=== PATIENT | female | born 1970 | race Caucasian/White ===

== ENCOUNTER 2017-02-06 21:34 | Inpatient (IN) ==
[2017-02-07] MEDS ORDERED: Naloxone 0.4 MG/ML INJ IVP PRN (01:43)
[2017-02-07] MEDS ORDERED: Furosemide 20 MG/2 ML VIAL IVP ONE (01:46)
--- NOTE | 2017-02-07 01:48 | Internal Med History&Physical ---
Date of Encounter: 02/07/17 Time of Encounter: 01:00 Assessment and Plan (1) Acute respiratory failure Current visit: Yes Status: Acute Likely secondary to acute exacerbation of CHF/pulmonary edema. She is treated with Lasix and supplemental oxygen. She is improving. Qualifiers: Respiratory failure complication: hypoxia Qualified Code(s): J96.01 - Acute respiratory failure with hypoxia (2) Acute exacerbation of CHF (congestive heart failure) Current visit: Yes Status: Acute Patient's prior medical records indicate CHF (systolic) - patient reports that she is not aware. Her clinical presentation is suspicious for acute exacerbation of CHF. BNP was 875. Treat with intravenous Lasix. Echocardiogram. Consider cardiology consultation. Based on my evaluation is unlikely that the patient has pneumonia. We will repeat the chest x-ray, after the patient received Lasix. Check CRP. There is no significant radiographic improvement, or if the patient is worsening consider starting antibiotics. At this time I am not giving her any antibiotics Qualifiers: Congestive heart failure type: unspecified congestive heart failure type Qualified Code(s): I50.9 - Heart failure, unspecified (3) Hypokalemia Current visit: Yes Status: Acute Replenish potassium. Check magnesium level (4) HTN (hypertension) Current visit: Yes Status: Chronic Continue home antihypertensives Qualifiers: Hypertension type: essential hypertension Qualified Code(s): I10 - Essential (primary) hypertension (5) Morbid obesity with BMI of 45.0-49.9, adult Current visit: Yes Status: Chronic Supportive care (6) Leucocytosis Current visit: Yes Status: Acute Possibly secondary to recent steroid use Qualifiers: Leukocytosis type: unspecified Qualified Code(s): D72.829 - Elevated white blood cell count, unspecified (7) Swelling of right lower extremity Current visit: Yes Status: Chronic Possibly sequela of prior DVT. Will check D-dimer - if positive, consider venous doppler / CTA chest (8) DVT prophylaxis Current visit: Yes Status: Acute [facility] Internal Medicine - H&P: HPI Chief complaint: shortness of breath Admitted From: Emergency Dept Plans for Post Hospital Care: Home History of present illness: Ms. Astudillo is a 46 year old female with past medical history significant for hypertension, GERD, hyperlipidemia. Prior records indicate that she has congestive heart failure (systolic) - she is not aware of the diagnosis. 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 She also reports history of DVT in the right lower extremity, following right knee replacement and was treated with anticoagulant for 6 months (her RLE is more swollen than the left at baseline). She apparently went to emergency department at [facility], on 02/03/17, with shortness of breath and dry cough. She was thought to have bronchitis and was treated with prednisone. She did not improve and her shortness of breath was getting worse and hence she presented to the emergency department. She now reports shortness of breath at rest and on lying down. She has cough with some expectoration and upper abdominal pain associated with cough. She denies chest pain, fever, chills, dysuria, hematuria, bowel problems, nausea, vomiting. She was evaluated in the emergency department at [facility]. She reportedly had oxygen saturations about 89-90% improvement, which improved with topical oxygen through nasal cannula. Chest x-ray reported - compared to a prior study, there is increased interstitial and patchy opacities. Findings are nonspecific, could represent either pulmonary edema or atypical infection. She was given levofloxacin, oral and IV potassium for hypokalemia. She is admitted to the hospitalist service for further management. Labs showed WBC 12.3, hemoglobin 11.6, hematocrit 35.7, platelets 291, sodium 146, potassium 2.7, BNP 5, creatinine 0.84, glucose 155, calcium 9.1, albumin 2.7. BNP: 875 Past Med Surg Social Fam HX - Past Medical History Medical history: arthritis, CHF, GERD, hyperlipidemia, hypertension, other Psychiatric history: no psych history - Past Surgical History Surgical History: other - Social History Smoking Status: Never smoker Smokeless Tobacco Status: No Alcohol use: none Drug use: none - Family History Mother Age: 66 Family Member Ethnicity: Non- Living Status: Age at : 66 Cause of : [place] Hx Family Cardiac Disorders: Yes ([place]) Hx Family Respiratory Disorders: No Hx Family Cancer: No Hx Family GI Disorders: No Hx Family Genitourinary Disorders: No Hx Family Endocrine Disorder: Yes (DM) Hx Family Musculoskeletal Disorders: No Hx Family Neuromuscular Disorders: No Hx Family Neurologic Disorders: No Hx Family HEENT Disorders: No Hx Family Autoimmune Disorders: No Hx Family Reproductive Disorders: No Hx Family Psychosocial Disorders: No Hx Family Medical Disorders: No Father Living Status: Hx Family Cardiac Disorders: No Hx Family Respiratory Disorders: No Hx Family Cancer: Yes (melenoma) Hx Family GI Disorders: Yes (GERD) Hx Family Genitourinary Disorders: No Hx Family Endocrine Disorder: No Hx Family Musculoskeletal Disorders: No Hx Family Neuromuscular Disorders: No Hx Family Neurologic Disorders: No Hx Family HEENT Disorders: No Hx Family Autoimmune Disorders: No Hx Family Reproductive Disorders: No Hx Family Psychosocial Disorders: No Hx Family Medical Disorders: No Internal Medicine - H&P: Meds Albuterol Sulfate [Albuterol Inhaler] 2 puff IH Q4HR PRN 10/29/15 [History] Carvedilol [Coreg] 6.25 mg PO HS 10/29/15 [History] Omeprazole [PriLOSEC] 40 mg PO HS 10/29/15 [History] Simvastatin [Zocor] 20 mg PO HS 10/29/15 [History] Aspirin 81 mg PO DAILY 07/13/16 [History] Lisinopril [Zestril] 5 mg PO HS 11/07/16 [History] PredniSONE 40 mg PO DAILY #10 tablet 02/03/17 [Rx] Promethazine/Dextromethorphan [Promethazine-Dm Syrup] 5 ml PO Q6HR PRN #120 ml 02/03/17 [Rx] Ibuprofen [Motrin] 800 mg PO Q8HR 02/07/17 [History] Loratadine [Allergy Relief] 10 mg PO PRN PRN 02/07/17 [History] Allergies No Known Allergies Allergy (Verified 12/25/16 19:14) All Systems PM: A 10-system review of systems was performed and is negative for pertinent findings except as documented above in the HPI. - Constitutional Vitals: Temp Pulse Resp BP Pulse Ox 98.3 F 83 18 140/91 95 02/06/17 23:56 02/06/17 23:56 02/06/17 23:56 02/06/17 23:56 02/06/17 23:56 Exam: General: Not in acute distress at the time of my evaluation HEENT: Oral mucosa is moist. No conjunctival palor or scleral icterus Neck: No obvious neck swellings Lungs: Bilateral posterior basal crackles heard Cardiac: Regular rate and rhythm. No significant murmurs Abdomen: Soft, non tender. Bowel sounds present Genitourinary: No hammond catheter Neurological: Alert and oriented. No gross localizing deficits Psych: Not aggressive or agitated Extremities: Bilateral leg edema; right more than left Skin: No generalized rash Internal Med - H&P Results - Labs Labs: Labs showed WBC 12.3, hemoglobin 11.6, hematocrit 35.7, platelets 291, sodium 146, potassium 2.7, BNP 5, creatinine 0.84, glucose 155, calcium 9.1, albumin 2.7. - EKG Data -: EKG Interpreted by Myself EKG shows normal: sinus rhythm - EKG Data EKG comments: LBBB, heart rate 108, QTC 459 ms 02/07/17 02:46 - Impressions Chest x-ray reported - compared to a prior study, there is increased interstitial and patchy opacities. Findings are nonspecific, could represent either pulmonary edema or atypical infection.
[2017-02-07] MEDS ORDERED: *HR* Enoxaparin 40 MG/0.4 ML SYRINGE SQ SCH (06:00)
[2017-02-07 06:07] LABS: Basophils # 0.1 K/mcL (0.0-0.2); Basophils % 0.4 %; Eosinophils % 0.1 %; Hematocrit 37.7 % (35.3-44.9); Hemoglobin 12.2 g/dL (11.5-15.4); Immature Granulocytes % 0.4 % (0-4); Lymphocytes # 3.6 K/mcL (0.6-4.6); Lymphocytes % 25.6 %; Mean Corpuscular HGB Conc 32.4 g/dL (31.6-35.5); Mean Corpuscular Hemoglobin 29.4 pg (28.0-33.3); Mean Corpuscular Volume 90.8 fL (83.0-100.0); Mean Platelet Volume 10.4 fL (9.4-12.4); Monocytes # 1.1 K/mcL (0.0-1.3); Neutrophils # 9.1 K/mcL (1.6-8.9); Nucleated Red Blood Cells 0.1 /100 WBC (0); Platelet Count 358 K/mcL (140-400); Red Blood Count 4.15 M/mcL (3.82-4.97); Red Cell Distribution Width 14.1 % (11.5-14.5); Segmented Neutrophils % 65.5 %
[2017-02-07 06:29] LABS: BUN/Creatinine Ratio 13 (6-26); Blood Urea Nitrogen 12 mg/dL (7-20); Calcium 9.4 mg/dL (8.6-10.8); Carbon Dioxide 34 mEq/L (19-29); Chloride 96 mEq/L (98-109); Chol/HDL Ratio 3.7 (0-4.9); Cholesterol 180 mg/dL (< 200); Glucose 113 mg/dL (70-99); HDL Cholesterol 49 mg/dL (40-59); LDL Cholesterol,Calculated 67 mg/dL (0-99); Magnesium 1.9 mg/dL (1.6-2.6); Osmolality,Calculated 299 (280-300); Potassium 2.6 mEq/L (3.5-4.5); Sodium 144 mEq/L (136-145); Triglycerides 319 mg/dL (< 150); eGFR For African Americans > 60 (> 60); eGFR For Non-African Americans > 60 (> 60)
[2017-02-07 06:49] LABS: C-Reactive Protein 18 mg/L (Less than 5)
[2017-02-07] MEDS ORDERED: Furosemide 40 MG/4 ML VIAL IVP SCH (09:00)
[2017-02-07] MEDS: Aspirin 81 MG TAB.CHEW PO SCH (09:22)
[2017-02-07] MEDS ORDERED: Perflutren Lipid Microsphere 1.3 ML in 0.9 % Sodium Chloride 8.7 ML IVP ONE (10:40)
[2017-02-07] MEDS ORDERED: Perflutren Lipid Microsphere 2 ML VIAL ONE (10:42)
--- NOTE | 2017-02-07 14:08 | Event Note ---
Date of Encounter: 02/07/17 Time of Encounter: 14:05 46/female Past medical history: Hypertension, GERD, hyperlipidemia, morbid obesity History of present illness: Admitted for worsening shortness of breath/dry cough. She was evaluated in a [place] ER and was transferred here for further evaluation. Noted that she underwent extensive investigation. Some of the lab work/imaging studies are still ongoing. Plan We will continue present management at this time. Once we get all the information then will talk with patient and rearrange the medication
--- NOTE | 2017-02-07 15:05 | ECHO - Doppler Report ---
Echo with Imaging Enhancement Agent Name: Dian Astudillo Date of Study: 02/07/2017 Date: 1970 Ht: 64.0 in Medical Record#: [id number] Age: 46 Wt: 273.0 lb Gender: Female BSA: 2.23 Order #: [id number] Location: [facility] Room #: 3B Reading Physician: Dayami Mae DO Machinist: Mame Haas RDCS Ordering Physician: Sonya Rodgers MD Primary Physician: Galina Bansal CNP Indications: New onset congestive heart failure Impressions: Technically challenging study with suboptimal windows. LV systolic function is moderately reduced, 35%. Even with use of Definity, not all myocardial segments were well visualized. RV is normal in size and function in images provided. Mild mitral regurgitation. Mild tricuspid regurgitation. At least mild pulmonary hypertension by TR gradient. IVC is not well visualized to estimate RVSP. Left Ventricular Wall Motion: Rest Echo Findings The apex, apical inferior, apical anterior, mid anterior, apical septal, mid inferior septal, basal inferior septal, apical lateral, mid anterior septal and basal anterior septal blood were hypokinetic. The mid inferior, basal inferior, basal anterior, mid inferior lateral and basal inferior lateral blood were not visualized. All other wall segments showed normal motion. Findings: Study Quality * Technically sub-optimal due to body habitus. ECG Findings * Normal sinus rhythm with BBB. Left Ventricle * Definity echo contrast was used. * Indeterminate diastolic function. * LVEF 35%. * Moderately dilated left ventricle. Aorta * Normally sized aortic root. Left Atrium * Mildly dilated left atrium. Mitral Valve * Normal mitral valve structure. * No mitral stenosis. * Mild mitral regurgitation. Aortic Valve * No aortic regurgitation. * Aortic valve not well visualized. * No aortic stenosis. Tricuspid Valve * Tricuspid valve not well visualized. * Mild tricuspid regurgitation. Pulmonic Valve * Pulmonic valve is not well visualized. * No pulmonic stenosis. * Trace pulmonic regurgitation. Pulmonary Artery * Pulmonary artery not well visualized. Right Atrium * Normal right atrial size. Right Ventricle * Normal right ventricular structure and function. Borderline normal Lat S Jagdeep. Not well visualized in the PSAX or subcostal views. Interatrial Septum * Interatrial septum not well evaluated. Pericardium * There is no pericardial effusion present. IVC * The IVC is not well evaluated. History Hypertension Hypercholesteremia Family History of CAD 12-20-12 a Previous Echo was performed. Contrast: Definity 1.3 ml in 8.7 ml of saline 2 ml. Measurements: BP: 130/ 84 2D Normal Values RVIDd: 2.70 cm <2.7 cm IVSd: .70 cm 0.6 - 1.0 cm LVIDd: 5.90 cm 3.7 - 5.6 cm LVPWd: .90 cm 0.6 - 1.1 cm LVIDs: 4.70 cm 1.5 - 3.6 cm AO: 2.70 cm < 4.0 cm LA: 4.20 cm 2.0 - 4.0cm %FS: 26.60 cm >25 % LVOT Diam: 2.00 cm LA volume: Mitral Valve Peak E:1.01 m/sec Peak A:.28 m/sec E/A Ratio:3.7 Peak E' Lat Jagdeep:13.3 cm/s Peak E' Med Jagdeep:2.92 cm/s E/E' Lat Ratio:7.6 E/E' Med Ratio:34.6 Tricuspid Valve TV Regurg Peak Grad: 39.00mmHg TV Regurg Peak Jagdeep: 3.11m/sec Updated by Dayami Mae on 02/07/2017 2:54:33 PM electronically signed on 02/07/2017 3:01:23 PM with status of Final Wall Motion Rizvi: 1=Normal, 2=Hypokinesis, 3=Akinesis, 4=Dyskinesis, 5=Aneurysmal, 6=Hyperkinetic, X=Not Visualized (Blank)=Missing
[2017-02-07] MEDS ORDERED: *HR* Enoxaparin 100 MG/ML SYRINGE SQ SCH (18:00)
[2017-02-07] MEDS ORDERED: Potassium Chloride 40 MEQ, Lidocaine 1% 2 ML in D5% in Water 500 ML IVPB ONE (18:29)
[2017-02-08 04:57] LABS: Basophils # 0.1 K/mcL (0.0-0.2); Basophils % 1.2 %; Eosinophils # 0.3 K/mcL (0.0-0.6); Eosinophils % 3.1 %; Hemoglobin 12.5 g/dL (11.5-15.4); Immature Granulocytes % 0.2 % (0-4); Lymphocytes # 2.7 K/mcL (0.6-4.6); Lymphocytes % 27.2 %; Mean Corpuscular HGB Conc 32.1 g/dL (31.6-35.5); Mean Corpuscular Hemoglobin 29.6 pg (28.0-33.3); Mean Corpuscular Volume 92.2 fL (83.0-100.0); Mean Platelet Volume 9.9 fL (9.4-12.4); Monocytes # 0.8 K/mcL (0.0-1.3); Neutrophils # 5.9 K/mcL (1.6-8.9); Platelet Count 296 K/mcL (140-400); Red Blood Count 4.23 M/mcL (3.82-4.97); Segmented Neutrophils % 60.3 %
[2017-02-08 05:15] LABS: Alanine Aminotransferase 35 Units/L (0-55); Albumin 3.4 g/dL (3.5-5.0); Albumin/Globulin Ratio 0.9 (1.1-2.2); Alkaline Phosphatase 71 Units/L (38-126); Aspartate Amino Transferase 21 Units/L (5-34); BUN/Creatinine Ratio 17 (6-26); Bilirubin,Total 0.7 mg/dL (0.2-1.2); Blood Urea Nitrogen 13 mg/dL (7-20); Calcium 8.6 mg/dL (8.6-10.8); Carbon Dioxide 34 mEq/L (19-29); Chloride 96 mEq/L (98-109); Globulin 3.7 g/dL (2.4-3.5); Glucose 103 mg/dL (70-99); Osmolality,Calculated 296 (280-300); Sodium 143 mEq/L (136-145); Total Protein 7.1 g/dL (6.0-8.3); eGFR For African Americans > 60 (> 60); eGFR For Non-African Americans > 60 (> 60)
[2017-02-08 05:26] LABS: Potassium 2.4 mEq/L (3.5-4.5)
[2017-02-08] MEDS: *HR* Enoxaparin 40 MG/0.4 ML SYRINGE SQ SCH (05:48)
[2017-02-08] MEDS ORDERED: Potassium Chloride 40 MEQ, Lidocaine 1% 2 ML in D5% in Water 500 ML IVPB ONE (07:50)
[2017-02-08] MEDS: Aspirin 81 MG TAB.CHEW PO SCH (08:32)
--- NOTE | 2017-02-08 09:59 | Cardiology Consult Note ---
<Alvaro Sarkar - Last Filed: 02/08/17 10:49> Date of Encounter: 02/08/17 Time of Encounter: 08:30 Assessment and Plan (1) Acute exacerbation of CHF (congestive heart failure) Current Visit: Yes Status: Acute Per Cardiology: Per review of medical records, known mild NICMP. BNP 875, CXR stable. According to last cardiology note, on PO laxix 20mg PRN, however patient denies taking. Received IV Lasix during hospital stay. Net I&O + 823ml. patient's weight up 3 pounds since June 2016 Relatively euvolemic on exam, but does have some nonpitting edema with BNP elevation. We'll start Lasix 20 mg by mouth daily. Qualifiers: Congestive heart failure type: systolic Qualified Code(s): I50.23 - Acute on chronic systolic (congestive) heart failure (2) NICM (nonischemic cardiomyopathy) Current Visit: Yes Status: Chronic Per Cardiology: Per review of records patient noted to have EF of 50% on echo December 2012. Gated EF 48% on stress test May 2013. EF 40% on heart catheterization January 2014. Catheterization January 2014 showed normal coronary angiogram. Current EF on echo 35%. Patient with troponins of 0.03, 0.04, and 0.05. Chest pain-free. Suspect demand ischemia, however non-STEMI cannot be excluded. We'll consider cardiac rehabilitation consult after catheterization. Patient reviewed and discussed with Dr. Mae, since EF appears to be further down and with mild troponin recommendations are for repeat ischemic evaluation in terms of left heart catheterization. Patient agreeable. Left heart catheterization today. Further recommendations after catheterization. On LAURA inhibitor. On beta ember at home , will add back beta ember. (3) Hypokalemia Current Visit: Yes Status: Acute Per Cardiology: K+ noted to be 2.7 on arrival. Did receive IV Lasix. Potassium been replenished by primary service. Telemetry reviewed with occasional PVCs, continue to monitor telemetry. Magnesium stable at 1.9. Continue to monitor closely. Discussion w patient/family: The assessment and plan as outlined above was discussed with the patient and/or family members who expressed understanding and agreement. All questions were answered. Thank you for involving us in the care of your patient. Please call with any questions. History of Present Illness Consult date: 02/08/17 Requesting physician: Korey Zamora Consult reason: Elevated Trop, Decreased EF Chief complaint: BAER History of present illness: Ms. Astudillo is a 46 year old female with a relevant past medical history of nonischemic craniopathy, hypertension, obstructive sleep apnea, obesity, left bundle branch block. Patient follows with Dr. Larse with cardiology. Cardiology consult for evaluation of decreased EF and mild troponin elevation. Patient reports over the past week she's had increased dry, nonproductive cough with sinus drainage and increased short of breath with exertion. Patient reports she is being treated for bronchitis with prednisone. She indicates yesterday she developed worsening dyspnea on exertion that seemed to not improved with rest. She denies any chest pain or palpitations. She reports with this recent exertional dyspnea on exertion she has had some nausea and dizziness. She denies any syncope or falls. Denies any active bleeding or blood loss. Reports does not take Lasix at home area did she denies any significant weight gain. She does report intermittent leg swelling at times. Past Med Surg Social Fam HX - Past Medical History Attestation: Yes The following information was validated with the patient. Source: patient, old records reviewed Medical history: arthritis, CHF, GERD, hyperlipidemia, hypertension, other Psychiatric history: no psych history - Past Surgical History Surgical History: other - Social History Smoking Status: Never smoker Smokeless Tobacco Status: No Alcohol use: none Drug use: none - Family History Mother Age: 66 Family Member Ethnicity: Non- Living Status: Age at : 66 Cause of : [place] Hx Family Cardiac Disorders: Yes ([place]) Hx Family Respiratory Disorders: No Hx Family Cancer: No Hx Family GI Disorders: No Hx Family Genitourinary Disorders: No Hx Family Endocrine Disorder: Yes (DM) Hx Family Musculoskeletal Disorders: No Hx Family Neuromuscular Disorders: No Hx Family Neurologic Disorders: No Hx Family HEENT Disorders: No Hx Family Autoimmune Disorders: No Hx Family Reproductive Disorders: No Hx Family Psychosocial Disorders: No Hx Family Medical Disorders: No Father Living Status: Hx Family Cardiac Disorders: No Hx Family Respiratory Disorders: No Hx Family Cancer: Yes (melenoma) Hx Family GI Disorders: Yes (GERD) Hx Family Genitourinary Disorders: No Hx Family Endocrine Disorder: No Hx Family Musculoskeletal Disorders: No Hx Family Neuromuscular Disorders: No Hx Family Neurologic Disorders: No Hx Family HEENT Disorders: No Hx Family Autoimmune Disorders: No Hx Family Reproductive Disorders: No Hx Family Psychosocial Disorders: No Hx Family Medical Disorders: No Medications and Allergies Albuterol Sulfate [Albuterol Inhaler] 2 puff IH Q4HR PRN 10/29/15 [History] Carvedilol [Coreg] 6.25 mg PO HS 10/29/15 [History] Omeprazole [PriLOSEC] 40 mg PO HS 10/29/15 [History] Simvastatin [Zocor] 20 mg PO HS 10/29/15 [History] Aspirin 81 mg PO DAILY 07/13/16 [History] Lisinopril [Zestril] 5 mg PO HS 11/07/16 [History] PredniSONE 40 mg PO DAILY #10 tablet 02/03/17 [Rx] Promethazine/Dextromethorphan [Promethazine-Dm Syrup] 5 ml PO Q6HR PRN #120 ml 02/03/17 [Rx] Ibuprofen [Motrin] 800 mg PO Q8HR 02/07/17 [History] Loratadine [Allergy Relief] 10 mg PO DAILY 02/07/17 [History] Allergies No Known Allergies Allergy (Verified 12/25/16 19:14) All Systems Review: A 10-system review of systems was performed and is negative for pertinent findings except as documented above in the HPI. - Constitutional Constitutional: fatigue - EENT Nose, mouth and throat: sinus pain - Cardiovascular Cardiovascular: as per HPI, dyspnea on exertion, leg edema - Respiratory Respiratory: cough - Neurological Neurological: dizziness Physical Examination Vital Signs, Last 4 Hours Temp Pulse Resp BP Pulse Ox 02/08/17 07:24 97.4 F L 67 16 138/90 92 General: Conversant, No Apparent Distress HEENT: Atraumatic, Normocephaly, Mucus Membranes Moist Neck: No JVD, Normal carotid pulses Cardiac: Reg Rate and Rhythm, Normal S1 and S2, No Murmur Lungs: Normal Breath Sounds, No Wheeze, Rales, Rhonchi Neuro: Alert and responsive, No focal deficits noted Abdomen: Soft, Non-Tender, Other (obese) Skin: No rashes noted on visualized skin Musculoskeletal: No Chest Wall Tenderness Extremities: Other (+1 nonpitting edema bilateral LE) Results 02/08/17 04:09 02/08/17 04:09 Lab Results Laboratory Tests 02/07/17 02/07/1717 05:15 05:15 05:15 Potassium 2.6 L Troponin I 0.03 B-Natriuretic Peptide 803 H LDL Cholesterol, Calc 67 02/07/17 02/07/17 02/08/17 10:56 16:56 04:09 Potassium 2.4 L* Troponin I 0.04 H* 0.05 H* B-Natriuretic Peptide LDL Cholesterol, Calc ITS Impressions Chest X-Ray 02/07/17 06:00 IMPRESSION: Mildly improved left perihilar aeration. D/ / Keith Carter MD / Keith Carter MD Interpreting Provider: Keith Carter MD Intake & Output 02/05/17 02/06/17 02/07/17 02/08/17 23:59 23:59 23:59 23:59 Intake Total 1283 / 1283 Output Total 460 / 460 Balance 823 / 823 Weight 123.831 kg 123.831 kg 121.5 kg Active Medications Albuterol Sulfate (Albuterol Inhaler) 2 puff IH Q4HR PRN PRN Reason: Shortness Of Breath Stop: 08/09/17 01:49 EST Aspirin (Aspirin) 81 mg PO DAILY CORY Stop: 08/09/17 09:01 Last Admin: 02/08/17 08:32 Dose: Not Given Enoxaparin Sodium (Lovenox) 40 mg SQ 0600 CORY PRN Reason: Protocol Stop: 08/10/17 06:01 Last Admin: 02/08/17 05:48 Dose: 40 mg Potassium Chloride 40 meq/ (Lidocaine 2 ml/ Dextrose) 522 mls @ 130.5 mls/hr IVPB ONCE ONE Stop: 02/08/17 11:49 Last Admin: 02/08/17 08:35 Dose: 130.5 mls/hr Lisinopril (Zestril) 5 mg PO HS CORY PRN Reason: Protocol Stop: 08/09/17 21:01 Last Admin: 02/07/17 21:44 Dose: 5 mg Naloxone HCl (Narcan) 0.4 mg IVP Q2MIN PRN PRN Reason: Opioid Reversal Stop: 08/09/17 01:44 EST Omeprazole (Prilosec) 40 mg PO 0630 CORY Stop: 08/09/17 06:31 Last Admin: 02/08/17 05:49 Dose: 40 mg Potassium Chloride (Potassium Chloride) 40 meq PO Q6H CORY Stop: 02/08/17 18:01 Last Admin: 02/08/17 05:49 Dose: 40 meq Simvastatin (Zocor) 20 mg PO HS CORY PRN Reason: Protocol Stop: 08/09/17 21:01 Last Admin: 02/07/17 21:45 Dose: 20 mg - Imaging and Cardiology Chest Xray: report reviewed Echo: report reviewed Cardiac cath: report reviewed - EKG Interpretation EKG results cardiology: personally reviewed, left bundle branch block Consult Discharge Plan - Plan Referrals: Galina Bansal CNP [Primary Care Provider] - <Dayami Mae - Last Filed: 02/08/17 12:26> Date of Encounter: 02/08/17 Assessment and Plan Discussion w patient/family: The assessment and plan as outlined above was discussed with the patient and/or family members who expressed understanding and agreement. All questions were answered. Thank you for involving us in the care of your patient. Please call with any questions. History of Present Illness History of present illness: Ms. Astudillo is a 46 year old female All Systems Review: A 10-system review of systems was performed and is negative for pertinent findings except as documented above in the HPI. Physical Examination Vital Signs, Last 4 Hours Temp Pulse Resp BP Pulse Ox 02/08/17 11:04 97.7 F 77 17 131/82 92 Results 02/08/17 04:09 02/08/17 04:09 Lab Results 02/07/17 02/08/17 02/08/17 16:56 04:09 04:09 WBC 9.8 Hgb 12.5 Hct 39.0 Plt Count 296 INR Sodium 143 Potassium 2.4 L* Chloride 96 L Carbon Dioxide 34 H BUN 13 Creatinine 0.78 Glucose 103 H Calcium 8.6 Total Bilirubin 0.7 AST 21 ALT 35 Alkaline Phosphatase 71 Troponin I 0.05 H* 02/08/17 11:33 WBC Hgb Hct Plt Count INR 1.2 Sodium Potassium Chloride Carbon Dioxide BUN Creatinine Glucose Calcium Total Bilirubin AST ALT Alkaline Phosphatase Troponin I - Attending Attestation I examined this patient and my medical decision-making was reviewed with the [employer]IPY[employer] PA[employer]ING SUPERVISOR/PA/Advanced Practice Nurse/Resident Physician. I agree with the documented findings, disposition and treatment plan. Ms. Astudillo presents with dyspnea which appears, in part related to acute systolic CHF exacerbation. Her echo demonstrated LVEF 35%, previously 50%. Additionally, although the echo images were not optimal, there does appear to be regional wall abnormalities. Prior cath in 2013 demonstrated normal coronaries. However, she does have risk factors for CVD including obesity, hypertension, dyslipidemia. We have recommended proceeding with LHC to determine if reduction of EF is secondary to obstructive CAD. Also with a mild troponin elevation. Otherwise, recommend IV diuresis with careful watch on potassium level. She is on BB, ACEI and statin as well as aspirin. R/B/A of LHC were discussed with the patient in detail. She expressed understanding and verbalized agreement to proceed.
[2017-02-08 12:03] LABS: INR 1.2; Prothrombin Time 12.5 Seconds (9.4-12.1)
--- NOTE | 2017-02-08 12:09 | Internal Med Progress Note ---
Date of Encounter: 02/08/17 Time of Encounter: 12:06 - Assessment and plan (1) Acute exacerbation of CHF (congestive heart failure) Current Visit: Yes Status: Acute Assessment and plan: Noted that patient admitted with worsening shortness of breath. On IV diuresis. Echocardiogram showed ejection fraction of 35%. Compared to her old echocardiogram this is a new finding. Previous echocardiogram showed the ejection fraction was 40%. Plan: Cardiology on the board. We will await for recommendations. Qualifiers: Congestive heart failure type: systolic Qualified Code(s): I50.23 - Acute on chronic systolic (congestive) heart failure - Subjective Interval history: Patient seen and examined. Chart reviewed. Patient is still occasionally short of breath. Denies chest pain, dizziness, nausea, vomiting and diarrhea. - Constitutional Vitals: Temp Pulse Resp BP Pulse Ox 97.7 F 77 17 131/82 92 02/08/17 11:04 02/08/17 11:04 02/08/17 11:04 02/08/17 11:04 02/08/17 11:04 General appearance: Present: A&O X 3, morbidly obese, pleasant, answers questions appropriately - Head Head exam: Present: atraumatic, normocephalic - Eye Eye exam: Present: PERRL, conjuntiva pink, sclera anicteric Pupils: Present: PERRL - Neck Neck exam general surgery: Present: supple, trachea midline. Absent: lymphadenopathy - Respiratory Respiratory exam: Present: CTAB. Absent: accessory muscle use, rales, rhonchi, wheezes - Cardiovascular Cardiovascular exam: Present: RRR, +S1, +S2. Absent: diastolic murmur, gallop, rubs, systolic murmur - GI/Abdominal GI/Abdominal exam: Present: normal bowel sounds, soft, no peritoneal signs. Absent: distended, tenderness - Extremities Exam Extremities exam: Present: warm, radial pulses palpable and symetrical. Absent : calf tenderness, cyanotic, pedal edema - Neurological Exam Neurological exam: Present: CN II-XII intact, oriented X3, no focal deficits. Absent: pronater drift, facial droop, speech deficit - Skin Skin exam: Present: dry, intact Internal Medicine: Result - Labs CBC & Chem 7: 02/08/17 04:09 02/08/17 04:09 Labs: Short CBC 02/08/17 Range/Units 04:09 WBC 9.8 (4.3-11.1) K/mcL Hgb 12.5 (11.5-15.4) g/dL Hct 39.0 (35.3-44.9) % Plt Count 296 (140-400) K/mcL Neutrophils # 5.9 (1.6-8.9) K/mcL BMP 02/08/17 04:09 Sodium 143 Potassium 2.4 L* Chloride 96 L Carbon Dioxide 34 H BUN 13 Creatinine 0.78 Glucose 103 H Calcium 8.6 Cardiac Enzymes 02/07/17 Range/Units 16:56 Troponin I 0.05 H* (0-0.03) ng/mL Liver Function 02/08/17 Range/Units 04:09 Total Bilirubin 0.7 (0.2-1.2) mg/dL AST 21 (5-34) Units/L ALT 35 (0-55) Units/L Alkaline Phosphatase 71 (38-126) Units/L Albumin 3.4 L (3.5-5.0) g/dL - ABG Interpretation ABG results: PT/INR, D-dimer PT 12.5 Seconds (9.4-12.1) H 02/08/17 11:33 D-Dimer 985 ng/mLFEU (0-500) H 02/07/17 05:15 Consult Discharge Plan - Plan Referrals: Galina Bansal, SECURITY INSTALLER [Primary Care Provider] -
[2017-02-08] MEDS ORDERED: Heparin 1,000 UNITS/500 mL NS 500 ML ONE (14:35)
[2017-02-08] MEDS ORDERED: *HR* Heparin 10,000 UNIT/10 ML VIAL ONE (14:35)
[2017-02-08] MEDS ORDERED: Verapamil 5 MG/2 ML VIAL ONE (14:35)
[2017-02-08] MEDS ORDERED: 0.9 % Sodium Chloride 1,000 ML ONE ×2 (14:36→15:53)
[2017-02-08] MEDS ORDERED: Nitroglycerin 1,000 MCG/10 ML VIAL IV ONE (14:36)
[2017-02-08] MEDS ORDERED: *HR* Midazolam HCl 2 MG/2 ML VIAL ONE (15:55)
[2017-02-08] MEDS ORDERED: *HR* FentaNYL (PF) 100 MCG/2 ML VIAL ONE (15:56)
--- NOTE | 2017-02-08 16:04 | Pre-Sedation Evaluation ---
Pre-sedation evaluation - Pre-sedation checklist Date of procedure: 02/08/17 Procedure: Heart Cath Recent Vitals: Last Vital Signs Temp 97.7 F 02/08/17 11:04 Pulse 77 02/08/17 11:04 Resp 17 02/08/17 11:04 BP 131/82 02/08/17 11:04 Pulse Ox 92 02/08/17 11:04 H&P (including ROS) documented in medical record: Yes Previous reaction to sedatives/anesthetics: No Dietary Status: NPO 6 hours prior to procedure Airway Assessment: Patient can open mouth completely, TMJ function normal Dentition: poor dentition Possible difficult airway: No ASA Classification *see protocol: CLASS II-Mild systemic disease Plan of Care: Pt appropriate candidate for procedure/moderate/conscious sedation
--- NOTE | 2017-02-08 16:49 | Procedure Note ---
Date of procedure: 02/08/17 Pre-op diagnosis: cardiomyopathy Post-op diagnosis: same Procedure: Cardiac cath Attempted right radial access, unable to access (weak baseline pulse). Right CLINICAL LABORATORY AIDE access under fluoro guidance. LAD: no sig CAD Cx: no sig CAD RCA: no sig CAD LAD and Cx have separate takeoffs from aorta no LVG LVEDP 23 mmHg Anesthesia: local Surgeon: Fritz Quinonez Condition: stable Disposition: floor
--- NOTE | 2017-02-08 17:09 | Invasive Diagnostic Lab Proc ---
Name: Dian Astudillo Date of Study: 02/08/2017 Date: 1970 Ht: 64.2in Medical Record#: [id number] Age: 46 Wt: 267.86lb Gender: Female BSA: 2.22 Order #: [id number] BMI: 45.73 Physicians Procedure Physician: Fritz Quinonez MD Referring MD: Referring MD: Staff Name Position Time In Hue Lea RN Coal Conveyor Operator 04:00 PM Margi Das RN Coal Conveyor Operator 04:00 PM Leana Steele RN Monitor 04:00 PM Chaitanya Holland RN Scrub 04:00 PM Aba, Nano RT (R) 04:00 PM Indications Indication Cardiomyopathy Non-Stemi Procedures Performed Procedure L HRT ARTERY/VENTRICLE ANGIO Pre-Procedure Checklist Informed consent is complete signed and on chart. H\\T\\P is on chart. ID band is on and ID verified with patient. Patient NPO for procedure The procedure was described for the patient and questions were answered. Blood Pressure: 131/82 ECG is on chart. Rhythm: NSR Plan of Care Patient will tolerate the procedure without complications. Adequate level of comfort will be maintained. Hemodynamics will remain stable Patient will recover from procedure without complications. Respiratory function will be maintained. Cardiac rhythm will remain stable. Patient temperature will be maintained. Patient and/or family have verbalized understanding of the procedure. Patient Education Chief Complaint/Reason for Test: Cardiac Cath Developmental Category: Adult (18-64 years) Developmentally Appropriate for Age: Yes Learning Barriers: None Education Needs: Procedure Education Method: Verbal Information Taught: Cardiac Cath Educational Evaluation: Able to repeat information Intravenous Access Time IV Size Location DC'd Fluid/Drip Rate Units RN 03:59 PM 18g 1 /" Patent On Arrival Rt Antecubital 0.9NaCl 25 ml/hr Margi Das RN Allergies No Known Allergies Vital Signs Time BP (mmHg) HR (bpm) O2 Sat. RR (bpm) LOC 03:59 PM 131 / 82 77 92 % 17 5 = Fully awake and oriented or at pre-proc level 04:01 PM / % 5 = Fully awake and oriented or at pre-proc level 04:01 PM / % 4 = Oriented but drowsy 04:16 PM / % 4 = Oriented but drowsy 04:32 PM / % 4 = Oriented but drowsy 04:03 PM 131 / 80 75 92 % 04:08 PM 137 / 88 135 93 % 14 04:13 PM 130 / 85 72 96 % 15 04:18 PM 139 / 82 77 96 % 12 04:23 PM 132 / 71 71 97 % 18 04:29 PM 124 / 69 81 98 % 12 04:33 PM 127 / 78 78 95 % 4 04:38 PM 132 / 96 88 93 % 9 04:43 PM 132 / 83 90 95 % 11 04:48 PM 138 / 73 91 96 % 8 04:53 PM 130 / 89 84 96 % 13 04:47 PM / % 4 = Oriented but drowsy Procedural Medications Time Medication Dose Units Method Given By 04:01 PM Oxygen 2 L/min nasal cannula Margi Das RN 04:01 PM Versed 1 mg Intravenous Margi Das RN 04:01 PM Fentanyl 50 mcg Intravenous Margi Das RN 04:13 PM Lidocaine 2% 1 ml Subcutaneous Fritz Quinonez MD 04:30 PM Lidocaine 2% 19 ml Subcutaneous Fritz Quinonez MD 04:32 PM Versed 1 mg Intravenous Margi Das RN 04:32 PM Fentanyl 50 mcg Intravenous Margi Das RN ASA Classification: CLASS II- Mild systemic disease (i.e. well-controlled diabetes, hypertension, asthma, cigarette smoking) Dana Score Preprocedure Postprocedure Activity 2- Moves 4 extremities sustained head lift Activity 2- Moves 4 extremities sustained head lift Circulation 2- SBP +/= 20 points of pre-anesthetic level Circulation 2- SBP +/= 20 points of pre-anesthetic level Consciousness 2- Awake and alert oriented x 3 Consciousness 2- Awake and alert oriented x 3 O2 Saturation 2- Able to maintain O2 satruation of 92% on room air O2 Saturation 2- Able to maintain O2 satruation of 92% on room air Respiratory 2- Able to deep breathe and cough well Respiratory 2- Able to deep breathe and cough well Total Score 10 Total Score 10 Contrast Agent: Isovue Diagnostic Contrast: 56 ml Total Contrast: 56 ml Fluoro Dose: 707 mGy Procedure Log Time Note Enter By 04:00 PM Pt arrived to lab specialist 2 at 16:00 brandon 04:00 PM Hue Lea RN Position: Coal Conveyor Operator Time in: 16:00 brandon 04:00 PM Margi Das RN Position: Coal Conveyor Operator Time in: 16:00 [facility] 04:00 PM Leana Steele RN Position: Monitor Time in: 16: [facility] 04:00 PM Chaitanya Holland RN Position: Scrub Time in: 16:00 [facility] 04:00 PM Aba, Nano RT (R) Position: Time in: 16:00 [facility] 04:00 PM Patient charges- Angio tray pack, Navilyst 3mm J, Pulse Oximetry and ACIST tubing and transducer [facility] 04:00 PM Case Delayed [facility] PM Hair removed from procedure site in procedure lab using clippers. Right groin and Right wrist prepped with Chloraprep by Leana Steele RN, safety strap applied then patient was draped. Skin intact. [facility] 04: PM Physician arrived 16: [facility] : PM ASA Class CLASS II- Mild systemic disease (i.e. well-controlled diabetes, hypertension, asthma, cigarette smoking) [facility] 04: PM Meet and greet completed [facility] 04: PM Sign in performed according to hospital policy. [facility] 04: PM Procedure start 16: [facility] : PM Time: 16: Oxygen on at 2 L/min per nasal cannula by Margi Das RN [facility] : PM Time: 16: Versed 1 mg Intravenous Given by Margi Das RN [facility] 04: PM Time: 16:01 Fentanyl 50 mcg Intravenous Given by Margi Das RN [facility] 04: PM Time: 16:01 Patient comfortable and pain free: Yes [facility] : PM Time: 16:LOC: 5 = Fully awake and oriented or at pre-proc level [facility] 04: PM Clinical Presentation: Non-STEMI [facility] 04: PM CathStat 04:02 PM Recorded ECG: HR=77 Condition=Condition 1 04:02 PM Vitals capture started with the following parameters, Patient=Adult, Interval=5 min, Initial Iulfutmp=972 mmHg, Deflation Rate=5 mmHg, Cuff placed on Left Arm 04:03 PM HR=75 bpm, HFOS=899/80 mmhg, SpO2=92.0 %, Comment=NSR BBB 04:08 PM KT=792 bpm, IEEX=223/88 mmhg, SpO2=93.0 %, Resp=14 B/min, Comment=NSR BBB 04:12 PM Pressure channel 1 zeroed. 04:12 PM Time out performed according to hospital policy [facility] 04:13 PM Time: 16:13 1 ml Lidocaine 2% to right radial Subcutaneous Given by Fritz [facility]onez MD [facility] 04:13 PM HR=72 bpm, YQXK=542/85 mmhg, SpO2=96.0 %, Resp=15 B/min, Comment=NSR BBB 04:13 PM Unsuccessful access attempt # 1 into the right radial artery. Manual pressure applied to achieve hemostasis.. [facility] 04:13 PM Unsuccessful access attempt # 2 into the right radial artery. Manual pressure applied to achieve hemostasis.. [facility] 04[facility] PM Time: 16:01LOC: 4 = Oriented but drowsy [facility] 04[facility] PM Time: 16:01 Patient comfortable and pain free: Yes [facility] 04:17 PM Unsuccessful access attempt # 3 into the right radial artery. Manual pressure applied to achieve hemostasis.. [facility] 04:18 PM HR=77 bpm, YTOT=710/82 mmhg, SpO2=96.0 %, Resp=12 B/min 04:23 PM HR=71 bpm, KSMV=493/71 mmhg, SpO2=97.0 %, Resp=18 B/min, Comment=NSR BBB 04:24 PM Unsuccessful access attempt # 4 into the right radial artery. Manual pressure applied to achieve hemostasis.. [facility] 04:29 PM HR=81 bpm, EMDG=048/69 mmhg, SpO2=98.0 %, Resp=12 B/min, Comment=NSR [facility] 04:30 PM Time: 16:30 19 ml Lidocaine 2% to right groin Subcutaneous Given by MD brandon Hazel 04:31 PM Time: 16:16 Patient comfortable and pain free: Yes [facility] 04:32 PM Time: 16:16LOC: 4 = Oriented but drowsy [facility] 04:32 PM Time: 16:32 Versed 1 mg Intravenous Given by Margi Das RN 04:33 PM Time: 16:32 Fentanyl 50 mcg Intravenous Given by Margi Das RN 04:33 PM Access obtained by percutaneous puncture. 5Fr 10cm [place] sheath placed in right Femoral artery. [id number] lparsley 04:33 PM HR=78 bpm, JPIS=118/78 mmhg, SpO2=95.0 %, Resp=4 B/min, Comment=NSR BBB 04:33 PM 5Fr FL 4 catheter inserted over the wire DN lparsley 04:34 PM LCA angiography performed in multiple views. lparsley 04:34 PM Recorded Pressure: Ao, HR=50, Condition=Condition 1 (Aorta) Ao 108/82/93 04:35 PM Catheter removed lparsley 04:36 PM 5Fr FR 4 catheter inserted over the wire DN lparsley 04:37 PM Pressure channel 1 zeroed. 04:37 PM Recorded Pressure: LV, HR=89, Condition=Condition 1 (Left Ventricle) LV 111/5/12 04:38 PM Recorded Pressure: LV, HR=87, Condition=Condition 1 (Left Ventricle) LV 125/18/23 04:38 PM HR=88 bpm, BEMV=155/96 mmhg, SpO2=93.0 %, Resp=9 B/min, Comment=NSR BBB 04:42 PM RCA angiography performed in multiple views. lparsley 04:42 PM Catheter removed lparsley 04:43 PM 5Fr AL1 catheter inserted over the wire [id number] lparsley 04:43 PM HR=90 bpm, WEIF=033/83 mmhg, SpO2=95.0 %, Resp=11 B/min, Comment=NSR BBB 04:46 PM Catheter removed lparsley 04:46 PM Procedure completed at 16:46 lparsley 04:46 PM Sign out completed: Radiation Dose 707 mGy Fluoro Time: 5.6 Isovue 370 - 200ml contrast 56 ml given by Fritz Quinonez MD. Complications: NoneCardiac Rehab Consult needed: NoConfirmed administered medications: Yes [facility] 04:46 PM Isovue 370 - 200ml,1 Bottle(s) used. lparsley 04:47 PM Time: 16:31 Patient comfortable and pain free: Yes lparsaníbal 04:47 PM Time: 16:32LOC: 4 = Oriented but drowsy lparsley 04:48 PM HR=91 bpm, VLFA=813/73 mmhg, SpO2=96.0 %, Resp=8 B/min, Comment=NSR BBB 04:50 PM Arterial sheath pulled using manual compression and V+ Pad for 15 minutes by Chaitanya Holland RN lpagiselle 04:50 PM Post ECG Sr with BBB lparsley 04:50 PM Post Blood Pressure 138/73 lparsley 04:50 PM 16:50 Post Pulses Bilateral DP \\T\\ PT 1+ lparsley 04:51 PM Information taught Cardiac Cath lparsaníbal 04:51 PM Education needs Procedure, Plan of Care, and Responsibilities of Patient in Care lparsley 04:51 PM Learning barriers :None lparsley 04:51 PM Education Methods Verbal lparsley 04:51 PM Education evaluation Able to repeat information lparsaníbal 04:51 PM Plavix, Effient or Brilinta given No lparsley 04:51 PM Delay to floor No lparsley 04:52 PM Patient out of room: 16:51 lparsley 04:52 PM Family placed in consult room. lparsley 04:52 PM Complications: None lparsaníbal 04:52 PM Fluoro Time: 5.6 lparsley 04:53 PM HR=84 bpm, UURG=653/89 mmhg, SpO2=96.0 %, Resp=13 B/min, Comment=NSR BBB 04:53 PM Coronary Dominance: Co-dominant lparsaníbal 05:01 PM Report given to Lou AREVALO Pt taken to 3B Room #46. 17:01 lparsley 05:01 PM Site status No bleeding/hematoma - Rt Groin as reported by Chaitanya Holland RN at 17:01 brandon 05:01 PM Opsite applied lparsaníbal 05:02 PM Patient out of room: 17:02 lparsley 05:02 PM Time: 16:47LOC: 4 = Oriented but drowsy lpagiselle 05:02 PM Time: 16:47 Patient comfortable and pain free: Yes lparsaníbal Complications Complication None None Hemodynamics Pressures Site Systolic/A Wave Diastolic/V Wave Mean AO 108 82 93 LV 111 5 12 LV 125 18 23 Post Procedure Information Blood Pressure: 138/73 mmHg Rhythm: Sr with BBB Post procedural instructions were given Closure Device Time Device Success/Fail 02/08/2017 4:55:00 PM Manual Compression Successful Site Checks Time Location Status Staff Sheath In? Note 05:01 PM Rt Groin No bleeding/hematoma Chaitanya Holland RN Pulses Time Site Pre-Procedure Post-Procedure Note 02/08/2017 3:59:00 PM Bilateral DP \\T\\ PT 1+ 02/08/2017 3:59:00 PM Bilateral radial 2+ 02/08/2017 3:59:00 PM Rt Radial Normal plethysmography's Test 4:50:00 PM Bilateral DP \\T\\ PT 1+ Updated by Hue Lea RN on 02/08/2017 5:03:34 PM electronically signed on 02/08/2017 5:04:43 PM with status of Final
[2017-02-08] MEDS ORDERED: Ibuprofen 800 MG TABLET PO PRN (20:22)
[2017-02-09 03:47] LABS: Basophils # 0.1 K/mcL (0.0-0.2); Basophils % 1.1 %; Eosinophils # 0.6 K/mcL (0.0-0.6); Eosinophils % 6.8 %; Hemoglobin 12.6 g/dL (11.5-15.4); Immature Granulocytes % 0.2 % (0-4); Lymphocytes # 2.5 K/mcL (0.6-4.6); Lymphocytes % 28.3 %; Mean Corpuscular HGB Conc 31.5 g/dL (31.6-35.5); Mean Corpuscular Hemoglobin 29.4 pg (28.0-33.3); Mean Corpuscular Volume 93.5 fL (83.0-100.0); Monocytes # 0.8 K/mcL (0.0-1.3); Neutrophils # 4.9 K/mcL (1.6-8.9); Platelet Count 314 K/mcL (140-400); Red Blood Count 4.28 M/mcL (3.82-4.97); Red Cell Distribution Width 14.4 % (11.5-14.5); Segmented Neutrophils % 54.6 %
[2017-02-09 04:04] LABS: Alanine Aminotransferase 31 Units/L (0-55); Albumin 3.3 g/dL (3.5-5.0); Albumin/Globulin Ratio 0.9 (1.1-2.2); Alkaline Phosphatase 73 Units/L (38-126); Aspartate Amino Transferase 22 Units/L (5-34); BUN/Creatinine Ratio 15 (6-26); Bilirubin,Total 0.5 mg/dL (0.2-1.2); Blood Urea Nitrogen 13 mg/dL (7-20); Calcium 8.7 mg/dL (8.6-10.8); Carbon Dioxide 30 mEq/L (19-29); Chloride 100 mEq/L (98-109); Globulin 3.8 g/dL (2.4-3.5); Glucose 131 mg/dL (70-99); Osmolality,Calculated 294 (280-300); Potassium 3.1 mEq/L (3.5-4.5); Sodium 141 mEq/L (136-145); Total Protein 7.1 g/dL (6.0-8.3); eGFR For African Americans > 60 (> 60); eGFR For Non-African Americans > 60 (> 60)
[2017-02-09] MEDS: *HR* Enoxaparin 40 MG/0.4 ML SYRINGE SQ SCH (06:07)
[2017-02-09] MEDS: Aspirin 81 MG TAB.CHEW PO SCH (08:36)
[2017-02-09] MEDS ORDERED: Furosemide 20 MG TABLET PO SCH (09:00)
--- NOTE | 2017-02-09 13:09 | Cardiology Progress Note ---
Date of Encounter: 02/09/17 Time of Encounter: 13:07 Assessment and Plan (1) Acute exacerbation of CHF (congestive heart failure) Current Visit: Yes Status: Acute Per Cardiology: NICMP, EF 35%. LHC yesterday without significant disease, no intervention. BNP 875, CXR stable. Relatively euvolemic on exam. Continue PO Lasix 20mg daily. K 3.1--replaced. Recommend sending home with potassium supplements as well. Cardiology signing off. Reconsult PRN. Will coordinate outpt follow-up. Qualifiers: Congestive heart failure type: systolic Qualified Code(s): I50.23 - Acute on chronic systolic (congestive) heart failure (2) Sleep apnea Current Visit: No Status: Chronic Known SREE with CPAP ordered at home, not been on CPAP during hospitalization. Resume CPAP once home. Nocturnal pauses 5.8 and 4.1 seconds noted, as well as nocturnal episode of SVT (13 beats), likely secondary to SREE being untreated during her stay. Qualifiers: Sleep apnea type: unspecified type Qualified Code(s): G47.30 - Sleep apnea , unspecified (3) NICM (nonischemic cardiomyopathy) Current Visit: Yes Status: Chronic Per Cardiology: EF decreased from 50% in 2013 to 35% per echo. LHC yesterday without significant disease. Continue BB and LAURA-I. Recheck echo in 3 months and if EF <35%, will need to discuss ICD. Discussion w patient/family: The assessment and plan as outlined above was discussed with the patient and/or family members who expressed understanding and agreement. All questions were answered. Thank you for involving us in the care of your patient. Please call with any questions. I will discuss all the above with Dr. Fritz Parekh and make changes as necessary. Subjective Principal diagnosis: NICMP, CHF Interval history: S/P LHC yesterday with no significant disease noted, NICMP. Pt reports breathing and lower extremity edema have improved. Denies any complaints. Objective Vital Signs, Last 4 Hours Temp Pulse Resp BP Pulse Ox 02/09/17 11:23 97.9 F 71 16 111/72 93 Vital Signs Temp Pulse Resp BP Pulse Ox 02/09/17 11:23 97.9 F 71 16 111/72 93 02/09/17 06:56 97.9 F 68 18 124/80 92 02/09/17 02:43 97.7 F 74 15 103/68 92 02/08/17 22:56 98 F 71 15 112/74 97 02/08/17 20:08 97.8 F 79 16 108/70 96 02/08/17 17:15 81 16 112/74 92 Intake and Output 02/08/17 02/09/17 02/09/17 23:59 07:59 15:59 Intake Total 240 / 240 360 / 360 Output Total 200 / 200 100 / 100 Balance 40 / 40 -100 / -100 360 / 360 Intake: Oral 240 / 240 360 / 360 Output: Urine 200 / 200 100 / 100 Other: Meal Breakfast Percent of Meal Consumed 100% Weight 122.47 kg Patient Weight 02/09/17 23:59 Weight 122.47 kg General: Conversant, No Apparent Distress HEENT: Atraumatic, Normocephaly, Mucus Membranes Moist Neck: No JVD Cardiac: Reg Rate and Rhythm, Normal S1 and S2, No Murmur Lungs: Normal Breath Sounds, No Wheeze, Rales, Rhonchi Neuro: Alert and responsive, No focal deficits noted Abdomen: Soft, Non-Tender Skin: Other (right radial access site healing well. No bleeding, hematoma or ecchymosis noted.) Musculoskeletal: No Chest Wall Tenderness Extremities: No Clubbing, No Cyanosis, No Edema, Normal Pulses Results 02/09/17 03:02 02/09/17 03:02 Lab Results 02/09/17 02/09/17 03:02 03:02 WBC 8.9 Hgb 12.6 Hct 40.0 Plt Count 314 Sodium 141 Potassium 3.1 L Chloride 100 Carbon Dioxide 30 H BUN 13 Creatinine 0.87 Glucose 131 H Calcium 8.7 Total Bilirubin 0.5 AST 22 ALT 31 Alkaline Phosphatase 73 Short CBC 02/09/17 Range/Units 03:02 WBC 8.9 (4.3-11.1) K/mcL Hgb 12.6 (11.5-15.4) g/dL Hct 40.0 (35.3-44.9) % Plt Count 314 (140-400) K/mcL Neutrophils # 4.9 (1.6-8.9) K/mcL BMP 02/09/17 Range/Units 03:02 Sodium 141 (136-145) mEq/L Potassium 3.1 L (3.5-4.5) mEq/L Chloride 100 (98-109) mEq/L Carbon Dioxide 30 H (19-29) mEq/L BUN 13 (7-20) mg/dL Creatinine 0.87 (0.57-1.11) mg/dL Glucose 131 H (70-99) mg/dL Calcium 8.7 (8.6-10.8) mg/dL Liver Function 02/09/17 Range/Units 03:02 Total Bilirubin 0.5 (0.2-1.2) mg/dL AST 22 (5-34) Units/L ALT 31 (0-55) Units/L Alkaline Phosphatase 73 (38-126) Units/L Albumin 3.3 L (3.5-5.0) g/dL Active Medications Albuterol Sulfate (Albuterol Inhaler) 2 puff IH Q4HR PRN PRN Reason: Shortness Of Breath Stop: 08/09/17 01:49 EST Aspirin (Aspirin) 81 mg PO DAILY [facility] Stop: 08/09/17 09:01 Last Admin: 02/09/17 08:36 Dose: 81 mg Carvedilol (Coreg) 3.125 mg PO BIDWM [facility] PRN Reason: Protocol Stop: 08/10/17 17:01 Last Admin: 02/09/17 08:36 Dose: 3.125 mg Enoxaparin Sodium (Lovenox) 40 mg SQ 0600 [facility] PRN Reason: Protocol Stop: 08/10/17 06:01 Last Admin: 02/09/17 06:07 Dose: Not Given Furosemide (Lasix) 20 mg PO DAILY [facility] Stop: 08/11/17 09:01 Last Admin: 02/09/17 08:36 Dose: 20 mg Ibuprofen (Motrin) 800 mg PO Q8HR PRN; Protocol PRN Reason: Pain Stop: 08/10/17 20:23 Last Admin: 02/08/17 20:51 Dose: 800 mg Lisinopril (Zestril) 5 mg PO HS [facility] PRN Reason: Protocol Stop: 08/09/17 21:01 Last Admin: 02/08/17 20:17 Dose: 5 mg Naloxone HCl (Narcan) 0.4 mg IVP Q2MIN PRN PRN Reason: Opioid Reversal Stop: 08/09/17 01:44 EST Omeprazole (Prilosec) 40 mg PO 0630 [facility] Stop: 08/09/17 06:31 Last Admin: 02/09/17 08:36 Dose: 40 mg Potassium Chloride (Potassium Chloride) 40 meq PO BID [facility] Stop: 08/11/17 09:01 Last Admin: 02/09/17 08:59 Dose: 40 meq Simvastatin (Zocor) 20 mg PO HS [facility] PRN Reason: Protocol Stop: 08/09/17 21:01 Last Admin: 02/08/17 20:17 Dose: 20 mg - Imaging and Cardiology Echo: report reviewed Cardiac cath: report reviewed - EKG Interpretation EKG results cardiology: other (24 hour tele AVG HR 83, SR. 2 significant pauses noted during nocturnal hours--5.8 seconds and 4.1 seconds. 13 beat run of SVT noted during nocturnal hours.) Consult Discharge Plan - Plan Referrals: Galina Bansal, ANIMAL CARE SUPERVISOR [Primary Care Provider] -
[2017-02-09 14:06] LABS: BUN/Creatinine Ratio 14 (6-26); Blood Urea Nitrogen 11 mg/dL (7-20); Calcium 9.1 mg/dL (8.6-10.8); Carbon Dioxide 28 mEq/L (19-29); Chloride 104 mEq/L (98-109); Glucose 117 mg/dL (70-99); Osmolality,Calculated 292 (280-300); Potassium 3.7 mEq/L (3.5-4.5); Sodium 141 mEq/L (136-145); eGFR For African Americans > 60 (> 60); eGFR For Non-African Americans > 60 (> 60)
--- NOTE | 2017-02-09 14:15 | Discharge Summary ---
Date of Encounter: 02/09/17 Time of Encounter: 14:11 - Discharge Diagnosis (1) Acute exacerbation of CHF (congestive heart failure) Priority: Primary Status: Acute Qualifiers: Congestive heart failure type: systolic Qualified Code(s): I50.23 - Acute on chronic systolic (congestive) heart failure (2) Hypokalemia Priority: Primary Status: Acute (3) HTN (hypertension) Priority: Secondary Status: Chronic Qualifiers: Hypertension type: essential hypertension Qualified Code(s): I10 - Essential (primary) hypertension (4) Morbid obesity Priority: Secondary Status: Chronic Qualifiers: Obesity type: unspecified obesity type Qualified Code(s): E66.01 - Morbid ( severe) obesity due to excess calories - Discharge Medications Prescriptions: Furosemide [Lasix] 20 mg PO DAILY #60 tablet Potassium Chloride 20 meq PO DAILY #60 tab.er.prt Home Medications: Albuterol Sulfate [Albuterol Inhaler] 2 puff IH Q4HR PRN 10/29/15 [History] Carvedilol [Coreg] 6.25 mg PO HS 10/29/15 [History] Omeprazole [PriLOSEC] 40 mg PO HS 10/29/15 [History] Simvastatin [Zocor] 20 mg PO HS 10/29/15 [History] Aspirin 81 mg PO DAILY 07/13/16 [History] Lisinopril [Zestril] 5 mg PO HS 11/07/16 [History] Promethazine/Dextromethorphan [Promethazine-Dm Syrup] 5 ml PO Q6HR PRN #120 ml 02/03/17 [Rx] Ibuprofen [Motrin] 800 mg PO Q8HR 02/07/17 [History] Loratadine [Allergy Relief] 10 mg PO DAILY 02/07/17 [History] Furosemide [Lasix] 20 mg PO DAILY #60 tablet 02/09/17 [Rx] Potassium Chloride 20 meq PO DAILY #60 tab.er.prt 02/09/17 [Rx] Allergies/Adverse Reactions: Allergies No Known Allergies Allergy (Verified 12/25/16 19:14) Procedures/tests Complete & Pending: Procedures Performed prior 72 hours Category Date Time Status CL Cardiac Catheterization [CL] 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[employer] 02/08/17 09:58 Ordered EV echocardiogram w enhance Routine Y 02/07/17 01:50 Completed Date of admission: 02/07/17 01:43 Primary care physician: Galina Bansal CNP Consults: 02/07/17 17:35 Consult to Cardiology [CONS] Routine Comment: Consulting Provider: Hermes Weinstein Reason for Consult: ?NSTEMI Call Completed: No Discharging clinician: Korey Zamora - Patient Status Disposition: Home, Self-Care Condition: Good Functional capacity at discharge: independent ambulation Overall status at discharge: patient is progressing back to baseline - Discharge Instructions Follow Up With: Galina Bansal CNP [Primary Care Provider] - - Diet and Activity Activity: increase activity as tolerated Diet: diabetic diet, low fat, low cholesterol, low salt diet Interval History: Ms. Astudillo is a 46 year old female with past medical history significant for hypertension, GERD, hyperlipidemia. Prior records indicate that she has congestive heart failure (systolic) - she is not aware of the diagnosis. 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 She also reports history of DVT in the right lower extremity, following right knee replacement and was treated with anticoagulant for 6 months (her RLE is more swollen than the left at baseline). She apparently went to emergency department at [facility], on 02/03/17, with shortness of breath and dry cough. She was thought to have bronchitis and was treated with prednisone. She did not improve and her shortness of breath was getting worse and hence she presented to the emergency department. She now reports shortness of breath at rest and on lying down. She has cough with some expectoration and upper abdominal pain associated with cough. She denies chest pain, fever, chills, dysuria, hematuria, bowel problems, nausea, vomiting. She was evaluated in the emergency department at [facility]. She reportedly had oxygen saturations about 89-90% improvement, which improved with topical oxygen through nasal cannula. Chest x-ray reported - compared to a prior study, there is increased interstitial and patchy opacities. Findings are nonspecific, could represent either pulmonary edema or atypical infection. She was given levofloxacin, oral and IV potassium for hypokalemia. She is admitted to the hospitalist service for further management. Labs showed WBC 12.3, hemoglobin 11.6, hematocrit 35.7, platelets 291, sodium 146, potassium 2.7, BNP 5, creatinine 0.84, glucose 155, calcium 9.1, albumin 2.7. BNP: 875 Hospital course: patient was hospitalized. cardiology evaluated her. She underwent cardiac catheterization. Cardiac catheterization did not find any obstructive CAD. NICMP, EF 35%. LHC yesterday without significant disease, no intervention. BNP 875, CXR stable. Relatively euvolemic on exam. Continue PO Lasix 20mg daily. plan home today follow up with cardio 1-2 weeks follow up with PCP 1-2 weeks all questions answered. - Time Spent with Patient Total time spent providing and/or coordinating discharge services: - Constitutional Vitals: Temp Pulse Resp BP Pulse Ox 97.9 F 71 16 111/72 93 02/09/17 11:23 02/09/17 11:23 02/09/17 11:23 02/09/17 11:23 02/09/17 11:23 General appearance: Present: A&O X 3, morbidly obese, pleasant, answers questions appropriately - Head Head exam: Present: atraumatic, normocephalic - Eye Eye exam: Present: PERRL, conjuntiva pink, sclera anicteric Pupils: Present: PERRL - Neck Neck exam general surgery: Present: supple, trachea midline. Absent: lymphadenopathy - Respiratory Respiratory exam: Present: CTAB. Absent: accessory muscle use, rales, rhonchi, wheezes - Cardiovascular Cardiovascular exam: Present: RRR, +S1, +S2. Absent: diastolic murmur, gallop, rubs, systolic murmur - GI/Abdominal GI/Abdominal exam: Present: normal bowel sounds, soft, no peritoneal signs. Absent: distended, tenderness - Extremities Exam Extremities exam: Present: warm, radial pulses palpable and symetrical. Absent : calf tenderness, cyanotic, pedal edema - Neurological Exam Neurological exam: Present: CN II-XII intact, oriented X3, no focal deficits. Absent: pronater drift, facial droop, speech deficit - Skin Skin exam: Present: dry, intact
[2017-02-09 15:03] VITALS: BP 122/80
== END 2017-02-09 17:00 | disposition home or self-care (01) | DRG 286 ==
LOC: 3BNU → SUATTDRO 02-07 01:43
PROVIDERS: ADMIT Internal Medicine; ATTEND Internal Medicine

== ENCOUNTER 2020-04-16 13:22 | Inpatient (IN) ==
[~2020-04-16 13:22] MED LIST: Total Joint Mixture (50 ml) INTRAART ONE
[2020-04-16] MEDS ORDERED: CeFAZolin Syr 2,000MG/20 ML 2,000 MG/20 ML SYRINGE IVPB ONE (13:55)
[2020-04-16] MEDS ORDERED: Ringers Solution, Lactated 1,000 ML IVC SCH ×2 (14:00→18:21)
[2020-04-16] MEDS ORDERED: Ethanol\\Acetic Acid\\Na Ace\\Ben 1,000 ML IRRIG.SOLN IR ONE (14:08)
[2020-04-16] MEDS ORDERED: Vancomycin 1,000 MG VIAL ONE (14:08)
[2020-04-16] MEDS ORDERED: Ropivacaine/PF 0.5% 30 ML VIAL ONE (14:12)
[2020-04-16] MEDS ORDERED: Acetaminophen IV 1,000 MG/100 ML INFUS..BTL IVPB ONE (14:12)
[2020-04-16] MEDS ORDERED: Famotidine 20 MG/2 ML VIAL IVP ONE (14:12)
[2020-04-16] MEDS ORDERED: *HR* Midazolam HCl 2 MG/2 ML VIAL ONE (14:43)
[2020-04-16] MEDS ORDERED: ROPIVACAINE/PF/NS 0.25% 1 EACH SYRINGE INTRAART ONE (14:45)
[2020-04-16] MEDS ORDERED: *HR* FentaNYL (PF) 100 MCG/2 ML VIAL ONE ×2 (15:46→15:56)
[2020-04-16] MEDS ORDERED: Lidocaine -MPF 2% 2 ML VIAL ONE (15:56)
[2020-04-16] MEDS ORDERED: *HR* Propofol 200 MG/20 ML VIAL IVP ONE (15:56)
[2020-04-16] MEDS ORDERED: *HR* Phenylephrine 10 MG/ML VIAL ONE (15:56)
[2020-04-16] MEDS ORDERED: *HR* Succinylcholine 200 MG/10 ML VIAL IVP ONE (15:56)
[2020-04-16] MEDS ORDERED: *HR* Etomidate 40 MG/20 ML VIAL IVP ONE (15:57)
[2020-04-16] MEDS ORDERED: Ondansetron 4 MG/2 ML VIAL ONE (15:58)
[2020-04-16] MEDS ORDERED: Dexamethasone 4 MG/ML VIAL ONE (15:58)
[2020-04-16] MEDS ORDERED: *HR* Promethazine 25 MG/ML VIAL IVP PRN ×2 (17:30→18:21)
[2020-04-16] MEDS ORDERED: Ondansetron 4 MG/2 ML VIAL IVP ONE (17:30)
[2020-04-16] MEDS ORDERED: *HR* HYDROmorphone PF 0.5 MG/0.5 ML SYRINGE IVP PRN (17:30)
[2020-04-16] MEDS ORDERED: *HR* OxyCODONE Immed Rel 5 MG TABLET PO PRN ×2 (17:30→18:21)
[2020-04-16] MEDS ORDERED: *HR* Meperidine 25 MG/ML SYRINGE IVP PRN (17:30)
[2020-04-16] MEDS: *HR* HYDROmorphone (PF) 1 MG/ML SYRINGE ONE ×2 (17:35→17:42)
[2020-04-16 18:10] LABS: Hematocrit 37.4 % (35.3-44.9); Hemoglobin 11.8 g/dL (11.5-15.4)
[2020-04-16] MEDS ORDERED: Dextrose Gel 15 GM/37.5 ML TUBE PO PRN ×2 (18:21)
[2020-04-16] MEDS ORDERED: *HR* Dextrose 50 % in Water (Vial) 50 ML VIAL IVP PRN (18:21)
[2020-04-16] MEDS ORDERED: Insulin LISPRO 300 UNITS/3 ML VIAL SQ SCH ×2 (18:21→21:00)
[2020-04-16] MEDS ORDERED: D5% in Water 1,000 ML IVC PRN (18:21)
[2020-04-16] MEDS ORDERED: Naloxone 0.4 MG/ML INJ IVP PRN (18:21)
[2020-04-16] MEDS ORDERED: Sennosides 8.6 MG TABLET PO PRN (18:21)
[2020-04-16] MEDS ORDERED: MOM Conc 10 ML UD.LIQ PO PRN (18:21)
[2020-04-16] MEDS: Ascorbic Acid 500 MG TABLET PO SCH (18:49)
[2020-04-16] MEDS: Apixaban 5 MG TABLET PO SCH (20:54)
[2020-04-16] MEDS ORDERED: lisinopriL 5 MG TABLET PO SCH (21:00)
[2020-04-16] MEDS ORDERED: CeFAZolin 2 GM/120 ML BAG IVPB SCH (23:00)
[2020-04-16] MEDS: HYDROcodone BIT/Homatropine 5 MG TABLET PO PRN (23:59)
[2020-04-17] MEDS: Ondansetron 4 MG/2 ML VIAL IVP PRN ×2 (00:05→12:25)
[2020-04-17 02:07] LABS: Basophils # 0.1 K/mcL (0.0-0.2); Basophils % 0.3 %; Hematocrit 35.4 % (35.3-44.9); Immature Granulocytes % 0.5 % (0-4); Lymphocytes # 1.3 K/mcL (0.6-4.6); Lymphocytes % 7.6 %; Mean Corpuscular HGB Conc 31.1 g/dL (31.6-35.5); Mean Corpuscular Hemoglobin 29.3 pg (28.0-33.3); Mean Corpuscular Volume 94.1 fL (83.0-100.0); Mean Platelet Volume 9.8 fL (9.4-12.4); Monocytes # 0.7 K/mcL (0.0-1.3); Monocytes % 4.3 %; Platelet Count 245 K/mcL (140-400); Red Blood Count 3.76 M/mcL (3.82-4.97); Red Cell Distribution Width 13.2 % (11.5-14.5); Segmented Neutrophils % 87.3 %
[2020-04-17 02:12] LABS: Neutrophils # 14.7 K/mcL (1.6-8.9); White Blood Count 16.8 K/mcL (4.3-11.1)
[2020-04-17 02:20] LABS: BUN/Creatinine Ratio 26 (6-26); Blood Urea Nitrogen 21 mg/dL (6-20); Calcium 8.2 mg/dL (8.6-10.3); Carbon Dioxide 21 mEq/L (23-29); Chloride 101 mEq/L (98-107); Glucose 226 mg/dL (70-105); Osmolality,Calculated 288 (280-300); Potassium 4.6 mEq/L (3.5-5.1); Sodium 134 mEq/L (136-145); eGFR For African Americans > 60 (> 60); eGFR For Non-African Americans > 60 (> 60)
[2020-04-17] MEDS: HYDROcodone BIT/Homatropine 5 MG TABLET PO PRN (05:54)
[2020-04-17 07:46] VITALS: BP 125/65
[2020-04-17] MEDS ORDERED: Insulin LISPRO 300 UNITS/3 ML VIAL SQ SCH (08:49)
[2020-04-17] MEDS ORDERED: Magnesium Oxide 400 MG TABLET PO SCH (09:00)
[2020-04-17] MEDS ORDERED: Metoprolol XL (24 HR) Succ 50 MG TAB.ER.24H PO SCH (09:00)
[2020-04-17] MEDS ORDERED: Loratadine 10 MG TABLET PO SCH (09:00)
[2020-04-17] MEDS ORDERED: *HR* Digoxin 0.125 MG TABLET PO SCH (09:00)
[2020-04-17] MEDS ORDERED: GlipiZIDE 5 MG TABLET PO SCH (09:00)
[2020-04-17] MEDS ORDERED: Furosemide 20 MG TABLET PO SCH (09:00)
[2020-04-17] MEDS ORDERED: Aspirin Enteric Coated 81 MG Tablet PO SCH ×2 (09:00)
[2020-04-17] MEDS ORDERED: Multivit/Ca/Min/Fe/FA 1 TAB TABLET PO SCH (09:00)
[2020-04-17] MEDS ORDERED: Budesonide/Formoterol 160/4.5 1 PUFF INH IH SCH (10:00)
[2020-04-17] MEDS: Ascorbic Acid 500 MG TABLET PO SCH (10:38)
[2020-04-17] MEDS: Apixaban 5 MG TABLET PO SCH (10:42)
== END 2020-04-17 14:51 | disposition home health service (06) | DRG 467 ==
LOC: SAMDAY 13:22 → 3NENU 18:20
PROVIDERS: ADMIT Orthopaedic Surgery; ATTEND Orthopaedic Surgery

== ENCOUNTER 2020-12-27 17:26 | Inpatient (IN) ==
[2020-12-27] MEDS ORDERED: Perflutren Lipid Microsphere 1.3 ML in 0.9 % Sodium Chloride 8.7 ML IVP PRN (21:07)
[2020-12-27] MEDS ORDERED: *HR* Dextrose 50 % in Water (Vial) 50 ML VIAL IVP PRN (22:03)
[2020-12-27] MEDS ORDERED: D5% in Water 1,000 ML IVC PRN (22:03)
[2020-12-27] MEDS ORDERED: Dextrose Gel 15 GM/37.5 ML TUBE PO PRN ×2 (22:03)
[2020-12-27] MEDS ORDERED: *HR* Heparin 5,000 UNIT/ML VIAL IVP ONE (22:14)
[2020-12-27] MEDS ORDERED: *HR* Heparin 5,000 UNIT/ML VIAL IVP PRN ×2 (22:14)
[2020-12-27] MEDS ORDERED: Heparin 25,000UNIT/250ML 1/2NS 25,000 UNIT/250 ML IV.SOLN IVC SCH (22:15)
[2020-12-27] MEDS ORDERED: Naloxone 0.4 MG/ML INJ IVP PRN (22:19)
[2020-12-27 22:50] LABS: Heparin anti-factor XA UFH 0.21 IU/mL (0.30-0.70)
[2020-12-27 22:51] LABS: INR 1.2
[2020-12-27] MEDS: Ondansetron 4 MG/2 ML VIAL IVP PRN (23:01)
[2020-12-27] MEDS: *HR* HYDROmorphone (PF) 1 MG/ML SYRINGE IVP PRN (23:01)
[2020-12-28 00:01] LABS: Bilirubin,Urine Negative (Negative); Blood,Urine Small (Negative); Clarity,Urine Clear (Clear); Color,Urine Colorless (Yellow); Glucose,Urine (UA) >=1000 mg/dL (Normal); Ketones,Urine 40 mg/dL (Negative); Leukocyte Esterase,Urine Negative (Negative); Mucus,Urine Few per lpf (None-Few); Nitrite,Urine Positive (Negative); PH,Urine 5.5 pH Units (5.0-8.0); Protein,Urine Negative (Neg-Trace); RBC,Urine 0-3 per hpf (0-3); Specific Gravity,Urine > 1.030 (1.010-1.025); Squamous Epithelial Cell,Urine Few per hpf (None-Few); Urobilinogen,Urine Normal (Normal)
[2020-12-28] MEDS ORDERED: tiZANidine 4 MG TABLET PO ONE (01:52)
[2020-12-28] MEDS: *HR* HYDROmorphone (PF) 1 MG/ML SYRINGE IVP PRN ×6 (03:14→16:50)
[2020-12-28 05:47] LABS: Hematocrit 37.6 % (35.3-44.9); Hemoglobin 11.8 g/dL (11.5-15.4); Mean Corpuscular HGB Conc 31.4 g/dL (31.6-35.5); Mean Corpuscular Hemoglobin 28.3 pg (28.0-33.3); Mean Corpuscular Volume 90.2 fL (83.0-100.0); Platelet Count 266 K/mcL (140-400); Red Blood Count 4.17 M/mcL (3.82-4.97); White Blood Count 14.1 K/mcL (4.3-11.1)
[2020-12-28 06:04] LABS: Estimated Average Glucose 209 mg/dl; Hemoglobin A1C 8.9 %
[2020-12-28 06:09] LABS: BUN/Creatinine Ratio 19 (6-26); Blood Urea Nitrogen 12 mg/dL (6-20); Calcium 8.6 mg/dL (8.6-10.3); Carbon Dioxide 22 mEq/L (23-29); Chloride 100 mEq/L (98-107); Chol/HDL Ratio 4.9 (0-4.9); Cholesterol 192 mg/dL (< 200); Glucose 201 mg/dL (70-105); HDL Cholesterol 39 mg/dL (40-59); LDL Cholesterol,Calculated 103 mg/dL (< 100); Osmolality,Calculated 281 (280-300); Potassium 4.1 mEq/L (3.5-5.1); Sodium 133 mEq/L (136-145); Triglycerides 249 mg/dL (< 150); eGFR For African Americans > 60 (> 60); eGFR For Non-African Americans > 60 (> 60)
[2020-12-28] MEDS: Insulin LISPRO 300 UNITS/3 ML VIAL SUBQ SCH ×4 (06:09→18:19)
[2020-12-28] MEDS: Ondansetron 4 MG/2 ML VIAL IVP PRN (07:51)
[2020-12-28] MEDS ORDERED: Loratadine 10 MG TABLET PO SCH (09:00)
[2020-12-28] MEDS ORDERED: Metoprolol XL (24 HR) Succ 25 MG TAB.ER.24H PO SCH (09:00)
[2020-12-28] MEDS ORDERED: Isosorbide MONOnitrate (24 HR) 30 MG TAB.ER.24H PO SCH (09:00)
[2020-12-28] MEDS ORDERED: *HR* Digoxin 0.25 MG TABLET PO SCH (09:00)
[2020-12-28] MEDS ORDERED: Magnesium Oxide 400 MG TABLET PO SCH (09:00)
[2020-12-28] MEDS ORDERED: *HR* OxyCODONE/APAP 5/325 TABLET PO PRN (11:23)
[2020-12-28] MEDS ORDERED: Lidocaine -MPF 2% 2 ML VIAL ONE (11:31)
[2020-12-28] MEDS ORDERED: Ondansetron 4 MG/2 ML VIAL ONE (11:31)
[2020-12-28] MEDS ORDERED: *HR* FentaNYL (PF) 100 MCG/2 ML VIAL ONE ×2 (11:31→15:40)
[2020-12-28] MEDS ORDERED: *HR* Succinylcholine 200 MG/10 ML VIAL IVP ONE (11:31)
[2020-12-28] MEDS ORDERED: *HR* Propofol 200 MG/20 ML VIAL IVP ONE (11:32)
[2020-12-28] MEDS ORDERED: *HR* Midazolam HCl 2 MG/2 ML VIAL ONE (11:32)
[2020-12-28] MEDS ORDERED: Lidocaine/EPI 1:200k 1% PF 10 ML VIAL ONE (12:05)
[2020-12-28] MEDS ORDERED: ceFAZolin 2,000 MG in Water for inj. (sterile) 20 ML IVP ONE (12:46)
[2020-12-28] MEDS ORDERED: Ketamine *HR* 500 MG/10 ML MDV ONE (12:49)
[2020-12-28] MEDS ORDERED: Dexmedetomidine HCl 400 MCG/100 ML MLS IVC ONE (12:49)
[2020-12-28] MEDS ORDERED: Ketorolac 30 MG/ML VIAL IVP PRN (13:00)
[2020-12-28] MEDS ORDERED: Scopolamine Patch 1.5 MG PATCH.TD72 TD ONE (13:00)
[2020-12-28] MEDS ORDERED: *HR* Metoprolol 5 MG/5 ML VIAL IVP PRN (13:00)
[2020-12-28] MEDS ORDERED: Promethazine 6.25 MG in Water for inj. (sterile) 20 ML IVPB PRN (13:00)
[2020-12-28] MEDS ORDERED: *HR* OxyCODONE Immed Rel 5 MG TABLET PO PRN (13:00)
[2020-12-28] MEDS ORDERED: Ondansetron 4 MG/2 ML VIAL IVP PRN ×2 (13:00→17:20)
[2020-12-28] MEDS ORDERED: Acetaminophen IV 1,000 MG/100 ML BAG IVPB ONE (13:01)
[2020-12-28] MEDS ORDERED: Dexamethasone 4 MG/ML VIAL ONE (14:13)
[2020-12-28] MEDS ORDERED: Vancomycin 1,000 MG VIAL ONE ×2 (14:29→14:43)
[2020-12-28] MEDS ORDERED: Ethanol\\Acetic Acid\\Na Ace\\Ben 1,000 ML IRRIG.SOLN IR ONE (14:43)
[2020-12-28 17:01] LABS: Hematocrit 35.8 % (35.3-44.9); Hemoglobin 10.7 g/dL (11.5-15.4)
[2020-12-28] MEDS ORDERED: Naloxone 0.4 MG/ML INJ IVP PRN (17:20)
[2020-12-28] MEDS ORDERED: D5% in Water 1,000 ML IVC PRN (17:20)
[2020-12-28] MEDS ORDERED: Sennosides 8.6 MG TABLET PO PRN (17:20)
[2020-12-28] MEDS ORDERED: Dextrose Gel 15 GM/37.5 ML TUBE PO PRN ×2 (17:20)
[2020-12-28] MEDS ORDERED: *HR* Dextrose 50 % in Water (Vial) 50 ML VIAL IVP PRN (17:20)
[2020-12-28] MEDS ORDERED: *HR* Heparin 5,000 UNIT/ML VIAL SQ SCH (18:00)
[2020-12-28] MEDS ORDERED: lisinopriL 5 MG TABLET PO SCH (21:00)
[2020-12-28] MEDS ORDERED: *HR* Promethazine 25 MG/ML VIAL IM STA (21:12)
[2020-12-28] MEDS: ceFAZolin 3,000 MG in 0.9 % Sodium Chloride 100 ML IVPB SCH (21:22)
[2020-12-28] MEDS: lisinopriL 5 MG TABLET PO SCH (21:24)
[2020-12-28] MEDS: Apixaban 5 MG TABLET PO SCH (21:24)
[2020-12-28] MEDS: *HR* OxyCODONE Immed Rel 5 MG TABLET PO PRN (21:26)
[2020-12-29] MEDS: Insulin LISPRO 300 UNITS/3 ML VIAL SUBQ SCH ×5 (01:26→20:52)
[2020-12-29] MEDS: ceFAZolin 3,000 MG in 0.9 % Sodium Chloride 100 ML IVPB SCH (01:26)
[2020-12-29] MEDS: *HR* OxyCODONE Immed Rel 5 MG TABLET PO PRN ×5 (01:55→23:12)
[2020-12-29] MEDS: *HR* OxyCODONE/APAP 5/325 TABLET PO PRN ×3 (05:21→16:48)
[2020-12-29] MEDS: Isosorbide MONOnitrate (24 HR) 30 MG TAB.ER.24H PO SCH (08:29)
[2020-12-29] MEDS: *HR* Digoxin 0.25 MG TABLET PO SCH (08:29)
[2020-12-29] MEDS: Loratadine 10 MG TABLET PO SCH (08:30)
[2020-12-29] MEDS: Apixaban 5 MG TABLET PO SCH ×2 (08:30→20:46)
[2020-12-29] MEDS: Magnesium Oxide 400 MG TABLET PO SCH (08:30)
[2020-12-29] MEDS: Metoprolol XL (24 HR) Succ 25 MG TAB.ER.24H PO SCH (08:31)
[2020-12-29] MEDS ORDERED: Ondansetron 4 MG/2 ML VIAL IVP PRN (09:00)
[2020-12-29 09:42] LABS: Basophils # 0.1 K/mcL (0.0-0.2); Basophils % 0.4 %; Eosinophils % 0.1 %; Hemoglobin 9.9 g/dL (11.5-15.4); Immature Granulocytes % 0.6 % (0-4); Lymphocytes # 3.6 K/mcL (0.6-4.6); Lymphocytes % 20.5 %; Mean Corpuscular HGB Conc 30.9 g/dL (31.6-35.5); Mean Corpuscular Hemoglobin 27.7 pg (28.0-33.3); Mean Corpuscular Volume 89.4 fL (83.0-100.0); Monocytes # 2.1 K/mcL (0.0-1.3); Monocytes % 11.7 %; Neutrophils # 11.8 K/mcL (1.6-8.9); Platelet Count 323 K/mcL (140-400); Red Blood Count 3.58 M/mcL (3.82-4.97); Red Cell Distribution Width 13.9 % (11.5-14.5); Segmented Neutrophils % 66.7 %; White Blood Count 17.7 K/mcL (4.3-11.1)
[2020-12-29 09:57] LABS: BUN/Creatinine Ratio 22 (6-26); Blood Urea Nitrogen 16 mg/dL (6-20); Calcium 8.3 mg/dL (8.6-10.3); Carbon Dioxide 21 mEq/L (23-29); Chloride 96 mEq/L (98-107); Glucose 236 mg/dL (70-105); Magnesium 1.8 mg/dL (1.6-2.6); Osmolality,Calculated 275 (280-300); Phosphorous 2.9 mg/dL (2.7-4.5); Potassium 4.2 mEq/L (3.5-5.1); Sodium 128 mEq/L (136-145); eGFR For African Americans > 60 (> 60); eGFR For Non-African Americans > 60 (> 60)
[2020-12-29] MEDS: lisinopriL 5 MG TABLET PO SCH (20:47)
[2020-12-30] MEDS: *HR* OxyCODONE Immed Rel 5 MG TABLET PO PRN ×4 (03:20→23:48)
[2020-12-30 04:15] LABS: Basophils # 0.1 K/mcL (0.0-0.2); Basophils % 0.9 %; Eosinophils # 0.1 K/mcL (0.0-0.6); Eosinophils % 0.7 %; Hematocrit 30.4 % (35.3-44.9); Hemoglobin 9.3 g/dL (11.5-15.4); Immature Granulocytes % 0.9 % (0-4); Lymphocytes # 3.7 K/mcL (0.6-4.6); Lymphocytes % 22.8 %; Mean Corpuscular HGB Conc 30.6 g/dL (31.6-35.5); Mean Corpuscular Hemoglobin 27.6 pg (28.0-33.3); Mean Corpuscular Volume 90.2 fL (83.0-100.0); Mean Platelet Volume 10.1 fL (9.4-12.4); Monocytes # 1.9 K/mcL (0.0-1.3); Monocytes % 11.8 %; Neutrophils # 10.2 K/mcL (1.6-8.9); Nucleated Red Blood Cells 0.2 /100 WBC (0); Platelet Count 299 K/mcL (140-400); Red Blood Count 3.37 M/mcL (3.82-4.97); Red Cell Distribution Width 14.2 % (11.5-14.5); Segmented Neutrophils % 62.9 %; White Blood Count 16.3 K/mcL (4.3-11.1)
[2020-12-30 04:34] LABS: BUN/Creatinine Ratio 27 (6-26); Blood Urea Nitrogen 15 mg/dL (6-20); Calcium 7.8 mg/dL (8.6-10.3); Carbon Dioxide 20 mEq/L (23-29); Chloride 95 mEq/L (98-107); Glucose 184 mg/dL (70-105); Osmolality,Calculated 274 (280-300); Phosphorous 2.5 mg/dL (2.7-4.5); Potassium 3.7 mEq/L (3.5-5.1); Sodium 129 mEq/L (136-145); eGFR For African Americans > 60 (> 60); eGFR For Non-African Americans > 60 (> 60)
[2020-12-30] MEDS: Metoprolol XL (24 HR) Succ 25 MG TAB.ER.24H PO SCH (07:55)
[2020-12-30] MEDS: Magnesium Oxide 400 MG TABLET PO SCH (07:55)
[2020-12-30] MEDS: Apixaban 5 MG TABLET PO SCH ×2 (07:55→21:48)
[2020-12-30] MEDS: Loratadine 10 MG TABLET PO SCH (07:56)
[2020-12-30] MEDS: Isosorbide MONOnitrate (24 HR) 30 MG TAB.ER.24H PO SCH (07:56)
[2020-12-30] MEDS: Insulin LISPRO 300 UNITS/3 ML VIAL SUBQ SCH ×4 (07:56→21:53)
[2020-12-30] MEDS: *HR* Digoxin 0.25 MG TABLET PO SCH (07:56)
[2020-12-30] MEDS: Famotidine 20 MG TABLET PO SCH ×2 (09:29→21:49)
[2020-12-30] MEDS: *HR* OxyCODONE/APAP 5/325 TABLET PO PRN (13:43)
[2020-12-30] MEDS: lisinopriL 5 MG TABLET PO SCH (21:48)
[2020-12-31 01:41] LABS: Basophils # 0.1 K/mcL (0.0-0.2); Basophils % 0.7 %; Eosinophils # 0.2 K/mcL (0.0-0.6); Eosinophils % 1.3 %; Hematocrit 28.9 % (35.3-44.9); Hemoglobin 8.9 g/dL (11.5-15.4); Immature Granulocytes % 1.3 % (0-4); Lymphocytes # 2.6 K/mcL (0.6-4.6); Lymphocytes % 17.8 %; Mean Corpuscular HGB Conc 30.8 g/dL (31.6-35.5); Mean Corpuscular Hemoglobin 27.5 pg (28.0-33.3); Mean Corpuscular Volume 89.2 fL (83.0-100.0); Mean Platelet Volume 9.7 fL (9.4-12.4); Monocytes # 1.5 K/mcL (0.0-1.3); Neutrophils # 10.2 K/mcL (1.6-8.9); Nucleated Red Blood Cells 0.2 /100 WBC (0); Platelet Count 300 K/mcL (140-400); Red Blood Count 3.24 M/mcL (3.82-4.97); Segmented Neutrophils % 68.9 %; White Blood Count 14.8 K/mcL (4.3-11.1)
[2020-12-31 01:58] LABS: BUN/Creatinine Ratio 34 (6-26); Blood Urea Nitrogen 16 mg/dL (6-20); Calcium 8.1 mg/dL (8.6-10.3); Carbon Dioxide 25 mEq/L (23-29); Chloride 94 mEq/L (98-107); Glucose 181 mg/dL (70-105); Magnesium 2.1 mg/dL (1.6-2.6); Osmolality,Calculated 274 (280-300); Phosphorous 2.3 mg/dL (2.7-4.5); Potassium 3.3 mEq/L (3.5-5.1); Sodium 129 mEq/L (136-145); eGFR For African Americans > 60 (> 60); eGFR For Non-African Americans > 60 (> 60)
[2020-12-31] MEDS: *HR* OxyCODONE Immed Rel 5 MG TABLET PO PRN ×2 (05:25→23:05)
[2020-12-31] MEDS: Insulin LISPRO 300 UNITS/3 ML VIAL SUBQ SCH ×4 (07:55→20:25)
[2020-12-31] MEDS: Isosorbide MONOnitrate (24 HR) 30 MG TAB.ER.24H PO SCH (07:56)
[2020-12-31] MEDS: *HR* Digoxin 0.25 MG TABLET PO SCH (07:56)
[2020-12-31] MEDS: Apixaban 5 MG TABLET PO SCH ×2 (07:56→20:24)
[2020-12-31] MEDS: Magnesium Oxide 400 MG TABLET PO SCH (07:56)
[2020-12-31] MEDS: Famotidine 20 MG TABLET PO SCH ×2 (07:56→20:24)
[2020-12-31] MEDS: Metoprolol XL (24 HR) Succ 25 MG TAB.ER.24H PO SCH (07:56)
[2020-12-31] MEDS: Loratadine 10 MG TABLET PO SCH (07:57)
[2020-12-31] MEDS: *HR* OxyCODONE/APAP 5/325 TABLET PO PRN ×3 (08:12→19:48)
[2020-12-31] MEDS ORDERED: 0.9 % Sodium Chloride 1,000 ML ONE (09:23)
[2020-12-31] MEDS ORDERED: 0.9 % Sodium Chloride 500 ML IVC ONE (09:26)
[2020-12-31 09:35] LABS: Basophils # 0.1 K/mcL (0.0-0.2); Basophils % 0.7 %; Eosinophils # 0.2 K/mcL (0.0-0.6); Eosinophils % 1.1 %; Hematocrit 29.6 % (35.3-44.9); Immature Granulocytes % 1.5 % (0-4); Lymphocytes # 3.9 K/mcL (0.6-4.6); Lymphocytes % 20.3 %; Mean Corpuscular HGB Conc 30.4 g/dL (31.6-35.5); Mean Corpuscular Hemoglobin 27.4 pg (28.0-33.3); Mean Platelet Volume 9.5 fL (9.4-12.4); Monocytes # 1.4 K/mcL (0.0-1.3); Neutrophils # 13.3 K/mcL (1.6-8.9); Nucleated Red Blood Cells 0.3 /100 WBC (0); Platelet Count 386 K/mcL (140-400); Red Blood Count 3.29 M/mcL (3.82-4.97); Red Cell Distribution Width 14.3 % (11.5-14.5); Segmented Neutrophils % 69.4 %; White Blood Count 19.2 K/mcL (4.3-11.1)
[2020-12-31 10:09] LABS: BUN/Creatinine Ratio 30 (6-26); Blood Urea Nitrogen 18 mg/dL (6-20); Calcium 8.2 mg/dL (8.6-10.3); Carbon Dioxide 25 mEq/L (23-29); Chloride 92 mEq/L (98-107); Glucose 292 mg/dL (70-105); Osmolality,Calculated 277 (280-300); Potassium 3.3 mEq/L (3.5-5.1); Sodium 127 mEq/L (136-145); Troponin I 0.04 ng/mL (< 0.04); eGFR For African Americans > 60 (> 60); eGFR For Non-African Americans > 60 (> 60)
[2020-12-31 10:52] LABS: Adenovirus F 40/41 PCR Not detected (Not detect); Astrovirus PCR Not detected (Not detect); C.difficile Toxin A/B Gene PCR Not detected (Not detect); Campylobacter by PCR Not detected (Not detect); Cryptosporidium by PCR Not detected (Not detect); Cyclospora cayetanensis PCR Not detected (Not detect); E. coli O157 by PCR Not detected (Not detect); Entamoeba histolytica PCR Not detected (Not detect); Enteroaggregative E.coli(EAEC) Not detected (Not detect); Enteropathogenic E.coli(EPEC) Not detected (Not detect); Enterotoxigenic E.coli (ETEC) Not detected (Not detect); Giardia lamblia PCR Not detected (Not detect); Norovirus GI/GII PCR Not detected (Not detect); Plesiomonas shigelloides PCR Not detected (Not detect); Rotavirus A PCR Not detected (Not detect); Salmonella PCR Not detected (Not detect); Sapovirus PCR Not detected (Not detect); Shig/EnteroinvasiveE coli EIEC Not detected (Not detect); Shigalike tox-prod E coli STEC Not detected (Not detect); Vibrio PCR Not detected (Not detect); Vibrio cholerae PCR Not detected (Not detect); Yersinia enterocolitica PCR Not detected (Not detect)
[2020-12-31] MEDS: Piperacillin/Tazobactam 3.375 GM in 0.9 % Sodium Chloride Mini Bag 100 ML IVPB SCH ×2 (11:46→19:55)
[2021-01-01] MEDS: *HR* OxyCODONE/APAP 5/325 TABLET PO PRN ×3 (03:12→16:58)
[2021-01-01] MEDS: Piperacillin/Tazobactam 3.375 GM in 0.9 % Sodium Chloride Mini Bag 100 ML IVPB SCH (03:24)
[2021-01-01 03:44] LABS: Basophils # 0.1 K/mcL (0.0-0.2); Basophils % 0.6 %; Eosinophils # 0.2 K/mcL (0.0-0.6); Eosinophils % 1.8 %; Hematocrit 28.6 % (35.3-44.9); Hemoglobin 8.7 g/dL (11.5-15.4); Immature Granulocytes % 1.4 % (0-4); Lymphocytes # 1.9 K/mcL (0.6-4.6); Lymphocytes % 18.3 %; Mean Corpuscular HGB Conc 30.4 g/dL (31.6-35.5); Mean Corpuscular Hemoglobin 27.8 pg (28.0-33.3); Mean Corpuscular Volume 91.4 fL (83.0-100.0); Mean Platelet Volume 9.8 fL (9.4-12.4); Monocytes # 0.7 K/mcL (0.0-1.3); Monocytes % 6.6 %; Neutrophils # 7.6 K/mcL (1.6-8.9); Nucleated Red Blood Cells 0.2 /100 WBC (0); Platelet Count 292 K/mcL (140-400); Red Blood Count 3.13 M/mcL (3.82-4.97); Red Cell Distribution Width 14.6 % (11.5-14.5); Segmented Neutrophils % 71.3 %; White Blood Count 10.6 K/mcL (4.3-11.1)
[2021-01-01 04:03] LABS: BUN/Creatinine Ratio 30 (6-26); Blood Urea Nitrogen 14 mg/dL (6-20); Calcium 8.1 mg/dL (8.6-10.3); Carbon Dioxide 25 mEq/L (23-29); Chloride 100 mEq/L (98-107); Glucose 176 mg/dL (70-105); Magnesium 1.9 mg/dL (1.6-2.6); Osmolality,Calculated 283 (280-300); Phosphorous 2.4 mg/dL (2.7-4.5); Potassium 3.6 mEq/L (3.5-5.1); Sodium 134 mEq/L (136-145); eGFR For African Americans > 60 (> 60); eGFR For Non-African Americans > 60 (> 60)
[2021-01-01] MEDS: *HR* OxyCODONE Immed Rel 5 MG TABLET PO PRN ×3 (06:55→21:26)
[2021-01-01] MEDS: Magnesium Oxide 400 MG TABLET PO SCH (09:07)
[2021-01-01] MEDS: Famotidine 20 MG TABLET PO SCH ×2 (09:07→20:05)
[2021-01-01] MEDS: Loratadine 10 MG TABLET PO SCH (09:07)
[2021-01-01] MEDS: Apixaban 5 MG TABLET PO SCH ×2 (09:08→20:05)
[2021-01-01] MEDS: *HR* Digoxin 0.25 MG TABLET PO SCH (09:08)
[2021-01-01] MEDS: Metoprolol XL (24 HR) Succ 25 MG TAB.ER.24H PO SCH (09:08)
[2021-01-01] MEDS: cefTRIAXone 1,000 MG in Water for inj. (sterile) 10 ML IVP SCH (09:08)
[2021-01-01] MEDS: Insulin LISPRO 300 UNITS/3 ML VIAL SUBQ SCH ×4 (09:26→20:05)
[2021-01-02] MEDS: *HR* OxyCODONE Immed Rel 5 MG TABLET PO PRN ×4 (01:24→20:07)
[2021-01-02 04:55] LABS: Basophils # 0.1 K/mcL (0.0-0.2); Basophils % 0.9 %; Eosinophils # 0.2 K/mcL (0.0-0.6); Eosinophils % 2.3 %; Hemoglobin 9.7 g/dL (11.5-15.4); Immature Granulocytes % 1.2 % (0-4); Lymphocytes # 2.6 K/mcL (0.6-4.6); Lymphocytes % 25.3 %; Mean Corpuscular HGB Conc 30.3 g/dL (31.6-35.5); Mean Corpuscular Volume 92.5 fL (83.0-100.0); Mean Platelet Volume 9.8 fL (9.4-12.4); Neutrophils # 6.1 K/mcL (1.6-8.9); Nucleated Red Blood Cells 0.7 /100 WBC (0); Platelet Count 311 K/mcL (140-400); Red Blood Count 3.46 M/mcL (3.82-4.97); Red Cell Distribution Width 14.6 % (11.5-14.5); Segmented Neutrophils % 60.3 %; White Blood Count 10.1 K/mcL (4.3-11.1)
[2021-01-02 05:11] LABS: BUN/Creatinine Ratio 25 (6-26); Blood Urea Nitrogen 13 mg/dL (6-20); Calcium 8.4 mg/dL (8.6-10.3); Carbon Dioxide 25 mEq/L (23-29); Chloride 96 mEq/L (98-107); Glucose 165 mg/dL (70-105); Magnesium 1.8 mg/dL (1.6-2.6); Osmolality,Calculated 276 (280-300); Phosphorous 3.1 mg/dL (2.7-4.5); Potassium 3.5 mEq/L (3.5-5.1); Sodium 131 mEq/L (136-145); eGFR For African Americans > 60 (> 60); eGFR For Non-African Americans > 60 (> 60)
[2021-01-02] MEDS: Apixaban 5 MG TABLET PO SCH ×2 (08:26→20:07)
[2021-01-02] MEDS: Loratadine 10 MG TABLET PO SCH (08:26)
[2021-01-02] MEDS: Metoprolol XL (24 HR) Succ 25 MG TAB.ER.24H PO SCH (08:27)
[2021-01-02] MEDS: *HR* Digoxin 0.25 MG TABLET PO SCH (08:27)
[2021-01-02] MEDS: Famotidine 20 MG TABLET PO SCH ×2 (08:27→20:07)
[2021-01-02] MEDS: Magnesium Oxide 400 MG TABLET PO SCH (08:27)
[2021-01-02] MEDS: cefTRIAXone 1,000 MG in Water for inj. (sterile) 10 ML IVP SCH (08:29)
[2021-01-02] MEDS: Insulin LISPRO 300 UNITS/3 ML VIAL SUBQ SCH ×4 (08:37→20:08)
[2021-01-02] MEDS: *HR* OxyCODONE/APAP 5/325 TABLET PO PRN (13:50)
[2021-01-03] MEDS: *HR* OxyCODONE Immed Rel 5 MG TABLET PO PRN ×3 (01:36→10:42)
[2021-01-03 02:14] LABS: BUN/Creatinine Ratio 29 (6-26); Blood Urea Nitrogen 15 mg/dL (6-20); Calcium 8.9 mg/dL (8.6-10.3); Carbon Dioxide 27 mEq/L (23-29); Chloride 97 mEq/L (98-107); Glucose 191 mg/dL (70-105); Magnesium 1.9 mg/dL (1.6-2.6); Osmolality,Calculated 280 (280-300); Phosphorous 3.2 mg/dL (2.7-4.5); Potassium 3.4 mEq/L (3.5-5.1); Sodium 132 mEq/L (136-145); eGFR For African Americans > 60 (> 60); eGFR For Non-African Americans > 60 (> 60)
[2021-01-03] MEDS: Magnesium Oxide 400 MG TABLET PO SCH (08:50)
[2021-01-03] MEDS: *HR* Digoxin 0.25 MG TABLET PO SCH (08:50)
[2021-01-03] MEDS: Apixaban 5 MG TABLET PO SCH (08:50)
[2021-01-03] MEDS: Famotidine 20 MG TABLET PO SCH (08:50)
[2021-01-03] MEDS: Loratadine 10 MG TABLET PO SCH (08:51)
[2021-01-03] MEDS: Metoprolol XL (24 HR) Succ 25 MG TAB.ER.24H PO SCH (08:51)
[2021-01-03] MEDS: cefTRIAXone 1,000 MG in Water for inj. (sterile) 10 ML IVP SCH (08:52)
[2021-01-03] MEDS: Insulin LISPRO 300 UNITS/3 ML VIAL SUBQ SCH (08:54)
[2021-01-03 10:40] VITALS: BP 121/79
[2021-01-03 11:01] LABS: Adenovirus Not Detected (Not Detect); Bordetella Pertussis Not Detected (Not Detect); Chlamydophila pneumoniae Not Detected (Not Detect); Coronavirus 229E Not Detected (Not Detect); Coronavirus HKU1 Not Detected (Not Detect); Coronavirus NL63 DETECTED (Not Detect); Coronavirus OC43 Not Detected (Not Detect); Human Metapneumovirus Not Detected (Not Detect); Human Rhinovirus/Enterovirus Not Detected (Not Detect); Influenza A Subtype 2009 H1 Not Detected (Not Detect); Influenza B Not Detected (Not Detect); Mycoplasma pneumoniae Not Detected (Not Detect); Parainfluenza Virus 1 Not Detected (Not Detect); Parainfluenza Virus 2 Not Detected (Not Detect); Parainfluenza Virus 3 Not Detected (Not Detect); Parainfluenza Virus 4 Not Detected (Not Detect); Respiratory Syncytial Virus Not Detected (Not Detect); SARS-CoV-2 Not Detected (Not Detect)
== END 2021-01-03 12:30 | DRG 480 ==
LOC: 3NENU → SUATTDRO 22:20
PROVIDERS: ADMIT General Practice; ATTEND Internal Medicine